=== PATIENT | female | born 1975 | race Caucasian/White ===

== ENCOUNTER → 2016-03-04 | Outpatient (CLI) | payer BC ==
[2016-03-04 16:13] LABS: Basophils % (A) 0 %; CH 30.9; CHCM 32.9; Eosinophils # (A) 0.1 k/uL (0-0.7); Eosinophils % (A) 2 %; HCT 45.2 % (34.0-46.0); HDW 2.23; HGB 14.7 gm/dL (11.4-16.0); Luc # (Auto) 0.09; Luc % (Auto) 1; Lymphocytes # (A) 1.7 k/uL (1.0-4.8); Lymphocytes % (A) 22 %; MCH 30.7 pg (25.0-35.0); MCHC 32.5 g/dL (31.0-37.0); MCV 94.3 fL (80.0-100.0); Mean Platelet Volume 6.6; Monocytes # (A) 0.3 k/uL (0-1.0); Monocytes % (A) 3 %; Neutrophils # (A) 5.6 k/uL (1.3-7.7); Neutrophils % (A) 72 %; RDW 11.9 % (11.5-15.5); WBC 7.8 k/uL (3.8-10.6); WBC (Perox) 8.31
[2016-03-04 16:27] LABS: ALT 31 U/L (9-52); AST 32 U/L (14-36); Alkaline Phosphatase 60 U/L (38-126); Anion Gap 13 mmol/L; Blood Urea Nitrogen 8 mg/dL (7-17); Calcium 9.6 mg/dL (8.4-10.2); Carbon Dioxide 26 mmol/L (22-30); Chloride 101 mmol/L (98-107); Glucose 111 mg/dL (74-99); Non-African American GFR(MDRD) >60 (>60 ml/min/1.73 sqM); Potassium 4.3 mmol/L (3.5-5.1); Sodium 140 mmol/L (137-145); Total Bilirubin 0.9 mg/dL (0.2-1.3); Total Protein 7.9 g/dL (6.3-8.2)
[2016-03-04 16:47] LABS: Creatine Kinase MB 0.3 ng/mL (0.0-2.4); Troponin I <0.012 ng/mL (0.000-0.034)
== END | disposition home or self-care (01) ==
LOC: LABWHC1 15:57
PROVIDERS: ATTEND Nurse Practitioner Adult Health
DX: R07.9 Chest pain, unspecified (principal)
CPT/HCPCS: 36415; 80053; 82553; 84484; 85025; 85379

== ENCOUNTER → 2016-04-22 | Outpatient (CLI) | payer BC ==
--- NOTE | 2016-04-22 16:43 | CT ---
EXAMINATION TYPE: CT brain wo con DATE OF EXAM: 04/22/2016 4:33 PM COMPARISON: NONE INDICATION: 06/03/2013 DLP: 1189 mGycm, Automated exposure control for dose reduction was used. CONTRAST: None CT of the brain is performed utilizing 3 mm thick sections through the posterior fossa and 3 mm thick sections through the remaining calvarium. Study is performed within 24 hours of arrival to the hosp [facility]. No abnormal hyperdensity is present to suggest an acute intracranial hemorrhage. No mass lesion is evident. No acute infarcts are evident. Ventricles and sulci are appropriate for the patient age. Paranasal sinuses and mastoid air cells within the [id number] are clear. IMPRESSIONS: 1. No acute intracranial process.
== END | disposition home or self-care (01) ==
LOC: RADCTMAIN 16:09
PROVIDERS: ATTEND Family Medicine
DX: S09.90XA Unspecified injury of head, initial encounter (principal)
CPT/HCPCS: 70450

== ENCOUNTER 2016-06-19 09:46 | Day surgery (SDC) | payer BC ==
[2016-06-17 14:33] VITALS: BMI 30.4
[~2016-06-19 09:46] MED LIST: LACTATED RINGERS 1,000 ML IV SCH
[2016-06-19 10:45] VITALS: TEMP 98.1
[2016-06-19] MEDS ORDERED: LIDOCAINE 1% 20 ML VIAL (10MG/ML) FOR IV START INTRADERMA ONE (10:48)
[2016-06-19] MEDS ORDERED: fentaNYL (PF) 50 MCG/ML 2 ML AMP ONE (11:19)
[2016-06-19] MEDS ORDERED: PROPOFOL 10 MG/ML 20 ML VIAL IV ONE (11:19)
[2016-06-19] MEDS ORDERED: MIDAZOLAM 2 MG/2 ML VIAL ONE (11:19)
[2016-06-19] MEDS ORDERED: LIDOCAINE 1% INJ 10MG/ML (20 ML MDV) ONE (11:19)
--- NOTE | 2016-06-19 11:50 | P.PCN ---
Date of Procedure: 06/19/16 Procedure(s) Performed: Procedure: Colonoscopy and biopsy. Preoperative diagnosis: Diarrhea and hematochezia. Postoperative diagnosis: Exam of the colon and terminal ileum within normal limits. Preparation: HalfLytely prep. Sedation: Was provided by anesthesia. Brief clinical history: The patient is a 40-year-old female who was previously evaluated in our office in March 2016 for left upper quadrant abdominal pains of 2-year duration, as well as epigastric pain and heartburn. The patient underwent upper endoscopy around 2 years ago. The patient is referred for this evaluation at this time because of diarrhea and hematochezia. Procedure: With the patient on her left lateral decubitus position and after informed consent and adequate sedation, the perianal area was inspected and it did not show any fissures or fistulas. There were no masses felt on digital rectal examination. The Olympus CFQ 160L video colonoscope was then inserted in the rectum in the usual fashion and advanced to the cecum. I intubated the ileocecal valve and examined the terminal ileum. Terminal ileum and colon appeared healthy with no edema, erythema, friability, ulceration, exudation or spontaneous bleeding. No polyps or tumors were seen. I obtained biopsies from the terminal ileum and randomly from the colon then I retroflexed the endoscope in the rectum before the endoscope was withdrawn. Low-grade internal hemorrhoids were noted but there was no evidence of bleeding. The patient tolerated the procedure well. Plan: The patient was reassured. Will await biopsy results. Discussed dietary measures. Further plans will be made based on her course and biopsy results. She will follow-up with you as planned.
[2016-06-19 12:06] VITALS: PULSE 69; RESP 18
[2016-06-19 12:18] VITALS: BP 110/75
== END 2016-06-19 12:44 | disposition home or self-care (01) ==
LOC: ORWHC2ENDO 09:46
DX: R19.7 Diarrhea, unspecified (principal); K92.1 Melena; K64.8 Other hemorrhoids; K21.9 Gastro-esophageal reflux disease without esophagitis; Z79.899 Other long term (current) drug therapy
CPT/HCPCS: 88305; 45380; J2250; J2001; J3010; J2704

== ENCOUNTER → 2016-07-10 | Outpatient (CLI) | payer BC ==
--- NOTE | 2016-07-10 13:49 | MM ---
Reason for exam: screening (asymptomatic). Last mammogram was performed 1 year and 1 month ago. History: Patient is postmenopausal. Family history of breast cancer in maternal grandmother at age 60. Took hormonal contraceptives for 4 years beginning at age 15. Physical Findings: A clinical breast exam by your physician is recommended on an annual basis and results should be correlated with mammographic findings. MG Screening Mammo w CAD Bilateral CC and MLO view(s) were taken. Prior study comparison: June 07, 2015, bilateral MG 3d screening mammo w/cad. October 24, 2013, bilateral MG diagnostic mammo w CAD [facility]. The breast tissue is heterogeneously dense. This may lower the sensitivity of mammography. No significant changes when compared with prior studies. ASSESSMENT: Benign, BI-RAD 2 RECOMMENDATION: Routine screening mammogram of both breasts in 1 year.
== END | disposition home or self-care (01) ==
LOC: RADMAMWWP 07:50
PROVIDERS: ATTEND Family Medicine
DX: Z12.31 Encounter for screening mammogram for malignant neoplasm of breast (principal)

== ENCOUNTER 2016-11-07 14:41 | Emergency (ER) | payer BC ==
[2016-11-07] MEDS ORDERED: hydrOXYzine HCL 25 MG TAB PO STA (15:36)
[2016-11-07 16:13] LABS: Basophils % (A) 1 %; CH 32.1; CHCM 33.8; Eosinophils # (A) 0.1 k/uL (0-0.7); Eosinophils % (A) 2 %; HCT 43.3 % (34.0-46.0); HDW 2.15; HGB 14.1 gm/dL (11.4-16.0); Luc # (Auto) 0.11; Luc % (Auto) 1; Lymphocytes # (A) 2.2 k/uL (1.0-4.8); Lymphocytes % (A) 25 %; MCHC 32.6 g/dL (31.0-37.0); MCV 95.3 fL (80.0-100.0); Mean Platelet Volume 7.5; Monocytes # (A) 0.4 k/uL (0-1.0); Monocytes % (A) 4 %; Neutrophils # (A) 5.9 k/uL (1.3-7.7); Neutrophils % (A) 68 %; RBC 4.54 m/uL (3.80-5.40); RDW 13.3 % (11.5-15.5); WBC 8.7 k/uL (3.8-10.6); WBC (Perox) 9.08
--- NOTE | 2016-11-07 16:16 | ED ---
Skin/Abscess/FB HPI - General Chief complaint: Skin/Abscess/Foreign Body Stated complaint: Itching all over Time Seen by Provider: 11/07/16 15:17 Source: patient, RN notes reviewed, old records reviewed Mode of arrival: ambulatory Limitations: no limitations - History of Present Illness Initial comments: This is a 41-year-old male presents emergency department with 2-3 weeks of severe pruritus. Patient reports that it's in her hands and feet mainly. She states that prior to the starting she recently completed an antibiotic for a left lower leg cellulitis infection. She reports that that seemed to heal well. Patient reports she went to an urgent care 1 week ago and was told she has psoriasis. Patient reports that she does have some severe itching. She reports it does not get any better with Benadryl, were and histamine spray. She was prescribed steroids and hydrocortisone cream by the urgent care physician week ago. She reports that has not helped. Patient states that she also has noticed a rash over her that is also very itchy. She states is red and in spotted patches. - Related Data Home Medications Medication Instructions Recorded Confirmed Omeprazole [PriLOSEC] 20 mg PO AC-BID 06/17/16 06/19/16 Previous Rx's Medication Instructions Recorded hydrOXYzine HCL [Atarax] 25 mg PO QID PRN #20 tab 11/07/16 predniSONE 50 mg PO DAILY #7 tablet 11/07/16 Allergies Allergy/AdvReac Type Severity Reaction Status Date / Time No Known Allergies Allergy Verified 11/07/16 14:53 Review of Systems ROS Statement: Those systems with pertinent positive or pertinent negative responses have been documented in the HPI. ROS Other: All systems not noted in ROS Statement are negative. Past Medical History Past Medical History: Fibromyalgia, GERD/Reflux Additional Past Medical History / Comment(s): HX OF POLYPS, BLOOD IN STOOL, ABD PAIN History of Any Multi-Drug Resistant Organisms: None Reported Past Surgical History: Section, Cholecystectomy, Hysterectomy Additional Past Surgical History / Comment(s): WISDOM TEETH, LEEP, PLANTAR FASCIAITIS LEFT FOOT Additional Past Anesthesia/Blood Transfusion Reaction / Comment(s): STATES COMES OUT OF ANESTHESIA IN "A PANIC ATTACK" Past Psychological History: No Psychological Hx Reported Smoking Status: Never smoker Past Alcohol Use History: None Reported Past Drug Use History: None Reported - Past Family History Mother Family Medical History: No Reported History General Exam - General Exam Comments Initial Comments: This is a 41-year-old female. Acute distress. Limitations: no limitations General appearance: alert, in no apparent distress Head exam: Present: atraumatic, normocephalic, normal inspection Eye exam: Present: normal appearance, PERRL, EOMI. Absent: scleral icterus, conjunctival injection, periorbital swelling ENT exam: Present: normal exam, mucous membranes moist Neck exam: Present: normal inspection. Absent: tenderness, meningismus, lymphadenopathy Respiratory exam: Present: normal lung sounds bilaterally. Absent: respiratory distress, wheezes, rales, rhonchi, stridor Cardiovascular Exam: Present: regular rate, normal rhythm, normal heart sounds. Absent: systolic murmur, diastolic murmur, rubs, gallop, clicks GI/Abdominal exam: Present: soft, normal bowel sounds. Absent: distended, tenderness, guarding, rebound, rigid Extremities exam: Present: normal inspection, full ROM, normal capillary refill. Absent: tenderness, pedal edema, joint swelling, calf tenderness Back exam: Present: normal inspection Neurological exam: Present: alert, oriented X3, CN II-XII intact Skin exam: Present: warm, dry, intact, normal color, rash ( has a lacelike mottled rash over her right breast, abdomen and back.) Course Vital Signs 11/07/16 11/07/16 14:50 16:51 Temperature 98.1 F 98.0 F Pulse Rate 70 73 Respiratory 18 16 Rate Blood Pressure 114/61 116/78 O2 Sat by Pulse 97 98 Oximetry Medical Decision Making - Medical Decision Making This is a 41-year-old male presents emergency department with 2-3 weeks of severe pruritus. Patient reports that it's in her hands and feet mainly. Patient reports she went to an urgent care 1 week ago and was told she has psoriasis. Patient reports that she does have some severe itching. Patient does not have a rash over her hands. There is evidence of a lacy-like rash peeling over the back, and right breast. A did do blood work on the patient, CBC and CMP are within normal limits. Discussed that this rash could be from multiple etiologies including autoimmune diseases such as lupus. Patient was informed of this. Patient warts that she does have a history of an elevated and in a few years ago. I did discuss this with Dr. Berkowitz. He also examined the patient. At this time elected to the patient for the pruritus, and place the patient on steroids, and Atarax for the itching. Discussion is follow-up with a clinical haematologist and senior ios software engineer. Patient agrees to treatment plan will comply. Return parameters were discussed. - Lab Data Result diagrams: 11/07/16 15:54 11/07/16 15:54 Lab Results 11/07/16 11/07/16 Range/Units 15:54 15:54 WBC 8.7 (3.8-10.6) k/uL RBC 4.54 (3.80-5.40) m/uL Hgb 14.1 (11.4-16.0) gm/dL Hct 43.3 (34.0-46.0) % MCV 95.3 (80.0-100.0) fL MCH 31.0 (25.0-35.0) pg MCHC 32.6 (31.0-37.0) g/dL RDW 13.3 (11.5-15.5) % Plt Count 409 (150-450) k/uL Neutrophils % 68 % Lymphocytes % 25 % Monocytes % 4 % Eosinophils % 2 % Basophils % 1 % Neutrophils # 5.9 (1.3-7.7) k/uL Lymphocytes # 2.2 (1.0-4.8) k/uL Monocytes # 0.4 (0-1.0) k/uL Eosinophils # 0.1 (0-0.7) k/uL Basophils # 0.0 (0-0.2) k/uL ESR Cancelled Sodium 138 (137-145) mmol/L Potassium 3.9 (3.5-5.1) mmol/L Chloride 105 (98-107) mmol/L Carbon Dioxide 21 L (22-30) mmol/L Anion Gap 12 mmol/L BUN 12 (7-17) mg/dL Creatinine 0.71 (0.52-1.04) mg/dL Est GFR (MDRD) Af Amer >60 (>60 ml/min/1.73 sqM) Est GFR (MDRD) Non-Af >60 (>60 ml/min/1.73 sqM) Glucose 88 (74-99) mg/dL Calcium 9.6 (8.4-10.2) mg/dL Total Bilirubin 0.6 (0.2-1.3) mg/dL AST 22 (14-36) U/L ALT 28 (9-52) U/L Alkaline Phosphatase 64 (38-126) U/L Total Protein 7.4 (6.3-8.2) g/dL Albumin 4.4 (3.5-5.0) g/dL Disposition Clinical Impression: Pruritic rash Disposition: HOME SELF-CARE Condition: Good Instructions: Acute Rash (ED) Additional Instructions: Patient has follow-up with clinical haematologist and PCP. Take the steroids and Atarax as prescribed. Continue use the hydrocortisone cream. Return to emergency department if any alarming signs or symptoms occur. Prescriptions: hydrOXYzine HCL [Atarax] 25 mg PO QID PRN #20 tab PRN Reason: Itching predniSONE 50 mg PO DAILY #7 tablet Referrals: Larisa Suggs DO [Primary Care Provider] - 1-2 days Boom Wilburn MD [STAFF PHYSICIAN] - 1-2 days Time of Disposition: 16:44
[2016-11-07 16:18] LABS: ALT 28 U/L (9-52); AST 22 U/L (14-36); Alkaline Phosphatase 64 U/L (38-126); Anion Gap 12 mmol/L; Blood Urea Nitrogen 12 mg/dL (7-17); Calcium 9.6 mg/dL (8.4-10.2); Carbon Dioxide 21 mmol/L (22-30); Chloride 105 mmol/L (98-107); Glucose 88 mg/dL (74-99); Non-African American GFR(MDRD) >60 (>60 ml/min/1.73 sqM); Potassium 3.9 mmol/L (3.5-5.1); Sodium 138 mmol/L (137-145); Total Bilirubin 0.6 mg/dL (0.2-1.3); Total Protein 7.4 g/dL (6.3-8.2)
[2016-11-07 16:53] VITALS: BP 116/78; PULSE 73; RESP 16; TEMP 98
== END 2016-11-07 16:51 | disposition home or self-care (01) ==
LOC: EC 14:41
DX: R21 Rash and other nonspecific skin eruption (principal); K21.9 Gastro-esophageal reflux disease without esophagitis; Z79.899 Other long term (current) drug therapy
CPT/HCPCS: 36415; 80053; 85025; 99283

== ENCOUNTER → 2016-11-10 | Outpatient (CLI) | payer BC | END | disposition home or self-care (01) | LOC: LABWHC1 17:11 | PROVIDERS: ATTEND Dermatology Procedural Dermatology | DX: D89.1 Cryoglobulinemia (principal) | CPT/HCPCS: 36415; 82595; 86038; 86431 ==

== ENCOUNTER → 2017-01-06 | Outpatient (CLI) | payer BC | END | disposition home or self-care (01) | LOC: LABWHC1 10:11 | PROVIDERS: ATTEND Dermatology Procedural Dermatology | DX: L30.9 Dermatitis, unspecified (principal); M32.9 Systemic lupus erythematosus, unspecified | CPT/HCPCS: 36415; 86147 ==

== ENCOUNTER → 2017-06-11 | Outpatient (CLI) | payer BC ==
--- NOTE | 2017-06-11 15:28 | FL ---
EXAMINATION TYPE: FL UGI air w small bowel DATE OF EXAM: 06/11/2017 COMPARISON: NONE HISTORY: Abdominal pain TECHNIQUE: A double contrast UGI study is performed with small bowel follow through. FINDINGS: Wastewater Supervisor image of the abdomen shows no gross abnormality. Surgical clips in the gallbladder f shae. Esophageal peristalsis and motility was normal. There is no evidence of hiatal hernia. Stomach was no rmal in size shape and position without evidence of ulcer crater or filling defect. There was evidenc e of moderate gastroesophageal reflux. Duodenal bulb and sweep are unremarkable. There is marked delay in transit time through the small bowel. Passage into the colon required 4 hour s and 5 minutes. The bowel is trace mild dilation dilated although there is some dilation. No definit e filling defects. IMPRESSION: 1. Marked delay in transit time through the small bowel requiring 4 hours and 5 minutes. No definite transition. Obstructive pattern or ileus in the differential diagnosis.
== END | disposition home or self-care (01) ==
LOC: RADFLMAIN 08:00
PROVIDERS: ATTEND Family Medicine
DX: K56.609 Unspecified intestinal obstruction, unspecified as to partial versus complete obstruction (principal)
CPT/HCPCS: 74249

== ENCOUNTER 2018-04-27 22:11 | Emergency (ER) | payer BC ==
[2018-04-27 22:24] VITALS: RESP 18
[2018-04-27] MEDS ORDERED: SODIUM CHLORIDE 0.9% 1,000 ML IV STA (22:32)
[2018-04-27] MEDS ORDERED: KETOROLAC 30 MG/ML 1 ML VIAL IVP STA (23:13)
--- NOTE | 2018-04-27 23:13 | ED ---
General Adult HPI - General Chief complaint: Chest Pain Stated complaint: Chest and lower back pain, cough, poss pneumonia Time Seen by Provider: 04/27/18 22:31 Source: patient Mode of arrival: ambulatory Limitations: no limitations - History of Present Illness Initial comments: Allison is a previously healthy, non-smoker who presents to the ED today for evaluation of progressively worsening cough, fatigue and body aches. Patient states that she began having minimally productive cough on , she tried to tough it out over the weekend. She states that she felt fatigued and became short of breath with minimal exertion all weekend. Today she returned to work and had a CPR class in which she became very tired doing chest compressions. Patient became concerned she may be developing pneumonia so she came to the ER for evaluation. She describes sharp pain in her bilateral chest throughout all lung salazar with deep inspiration , she denies exertional chest pain. She has no cardiac history, no history of DVT/PE - Related Data Home Medications Medication Instructions Recorded Confirmed DULoxetine HCL [Cymbalta] 20 mg PO DAILY 04/27/18 04/27/18 DULoxetine HCL [Cymbalta] 30 mg PO BID@0700,2000 04/27/18 04/27/18 Ergocalciferol (Vitamin D2) 50,000 unit PO MOFR 04/27/18 04/27/18 [Vitamin D2] Omeprazole 20 mg PO DAILY@1400 04/27/18 04/27/18 Previous Rx's Medication Instructions Recorded predniSONE [Deltasone] 40 mg PO DAILY 5 Days #10 tablet 04/28/18 Allergies Allergy/AdvReac Type Severity Reaction Status Date / Time No Known Allergies Allergy Verified 04/27/18 22:42 Review of Systems ROS Statement: Those systems with pertinent positive or pertinent negative responses have been documented in the HPI. ROS Other: All systems not noted in ROS Statement are negative. Past Medical History Past Medical History: Fibromyalgia, GERD/Reflux Additional Past Medical History / Comment(s): HX OF POLYPS, BLOOD IN STOOL, ABD PAIN History of Any Multi-Drug Resistant Organisms: None Reported Past Surgical History: Section, Cholecystectomy, Hysterectomy Additional Past Surgical History / Comment(s): WISDOM TEETH, LEEP, PLANTAR FASCIAITIS LEFT FOOT Additional Past Anesthesia/Blood Transfusion Reaction / Comment(s): STATES COMES OUT OF ANESTHESIA IN "A PANIC ATTACK" Past Psychological History: No Psychological Hx Reported Smoking Status: Never smoker Past Alcohol Use History: None Reported Past Drug Use History: None Reported - Past Family History Mother Family Medical History: No Reported History General Exam - General Exam Comments Initial Comments: Physical Exam GENERAL: Patient is well-developed and well-nourished. Patient is nontoxic and well-hydrated and is in no distress. HENT: Normocephalic, Atraumatic. EYES: PERRL, EOMI PULMONARY: Unlabored respirations. No audible rales rhonchi or wheezing was noted. CARDIOVASCULAR: There is a regular rate and rhythm without any murmurs gallops or rubs. ABDOMEN: Soft and nontender with normal bowel sounds. SKIN: Skin is clear with no lesions or rashes and otherwise unremarkable. : Deferred NEUROLOGIC: Patient is alert and oriented x3. Moving all extremities spontaneously MUSCULOSKELETAL: Normal extremities with adequate strength and full range of motion. No lower extremity swelling or edema. No calf tenderness. PSYCHIATRIC: Normal psychiatric evaluation. Limitations: no limitations Limitations: no limitations Course Vital Signs 04/27/18 04/28/18 22:21 01:08 Temperature 98.2 F 98.1 F Pulse Rate 73 89 Respiratory 18 18 Rate Blood Pressure 123/86 116/71 O2 Sat by Pulse 98 98 Oximetry EKG Findings - EKG Comments: EKG Findings:: EKG was obtained at 2237. EKG with a rate of 71, there is a P- wave before each QRS, rhythm is sinus, there is a normal axis, there are normal intervals, TN 152, QRS 72, QTc 432. There is no acute ST elevations or depressions or evidence of acute ischemia or infarction Medical Decision Making - Medical Decision Making The patient was seen and evaluated history is obtained from patient and review of medical records Patient with viral-like syndrome which has persisted for 5 days there is concern for possible pneumonia, in addition patient seems to be having pleuritic like chest pain EKG was ordered due to the chest pain Heart score is 0 PERC and Wells are negative Labs revealed no significant abnormalities, d-dimer not elevated At this time I do feel the patient is suffering from pleurisy likely related to recent upper respiratory infection. I discussed with the patient the need for supportive care. I will prescribe the patient is short course of oral steroids. All questions pertaining care were answered return parameters were discussed and offered the patient a work note however she stated that she has the next 2 days off work and doesn't need a work note at this time. - Lab Data Result diagrams: 04/27/18 23:02 04/27/18 23:02 Lab Results 04/27/18 04/27/18 04/27/18 Range/Units 23:02 23:02 23:02 WBC 6.2 (3.8-10.6) k/uL RBC 4.67 (3.80-5.40) m/uL Hgb 14.3 (11.4-16.0) gm/dL Hct 43.8 (34.0-46.0) % MCV 93.7 (80.0-100.0) fL MCH 30.7 (25.0-35.0) pg MCHC 32.8 (31.0-37.0) g/dL RDW 12.4 (11.5-15.5) % Plt Count 379 (150-450) k/uL Neutrophils % 55 % Lymphocytes % 36 % Monocytes % 5 % Eosinophils % 2 % Basophils % 1 % Neutrophils # 3.4 (1.3-7.7) k/uL Lymphocytes # 2.2 (1.0-4.8) k/uL Monocytes # 0.3 (0-1.0) k/uL Eosinophils # 0.1 (0-0.7) k/uL Basophils # 0.0 (0-0.2) k/uL PT 10.3 (9.0-12.0) sec INR 1.0 (<1.2) APTT 26.5 (22.0-30.0) sec D-Dimer 0.33 (<0.60) mg/L FEU Sodium 139 (137-145) mmol/L Potassium 4.2 (3.5-5.1) mmol/L Chloride 103 (98-107) mmol/L Carbon Dioxide 26 (22-30) mmol/L Anion Gap 10 mmol/L BUN 9 (7-17) mg/dL Creatinine 0.76 (0.52-1.04) mg/dL Est GFR (CKD-EPI)AfAm >90 (>60 ml/min/1.73 sqM) Est GFR (CKD-EPI)NonAf >90 (>60 ml/min/1.73 sqM) Glucose 83 (74-99) mg/dL Calcium 10.0 (8.4-10.2) mg/dL Magnesium 2.0 (1.6-2.3) mg/dL Total Bilirubin 0.7 (0.2-1.3) mg/dL AST 28 (14-36) U/L ALT 28 (9-52) U/L Alkaline Phosphatase 72 (38-126) U/L Troponin I (0.000-0.034) ng/mL Total Protein 7.5 (6.3-8.2) g/dL Albumin 4.5 (3.5-5.0) g/dL 04/27/18 Range/Units 23:02 WBC (3.8-10.6) k/uL RBC (3.80-5.40) m/uL Hgb (11.4-16.0) gm/dL Hct (34.0-46.0) % MCV (80.0-100.0) fL MCH (25.0-35.0) pg MCHC (31.0-37.0) g/dL RDW (11.5-15.5) % Plt Count (150-450) k/uL Neutrophils % % Lymphocytes % % Monocytes % % Eosinophils % % Basophils % % Neutrophils # (1.3-7.7) k/uL Lymphocytes # (1.0-4.8) k/uL Monocytes # (0-1.0) k/uL Eosinophils # (0-0.7) k/uL Basophils # (0-0.2) k/uL PT (9.0-12.0) sec INR (<1.2) APTT (22.0-30.0) sec D-Dimer (<0.60) mg/L FEU Sodium (137-145) mmol/L Potassium (3.5-5.1) mmol/L Chloride (98-107) mmol/L Carbon Dioxide (22-30) mmol/L Anion Gap mmol/L BUN (7-17) mg/dL Creatinine (0.52-1.04) mg/dL Est GFR (CKD-EPI)AfAm (>60 ml/min/1.73 sqM) Est GFR (CKD-EPI)NonAf (>60 ml/min/1.73 sqM) Glucose (74-99) mg/dL Calcium (8.4-10.2) mg/dL Magnesium (1.6-2.3) mg/dL Total Bilirubin (0.2-1.3) mg/dL AST (14-36) U/L ALT (9-52) U/L Alkaline Phosphatase (38-126) U/L Troponin I <0.012 (0.000-0.034) ng/mL Total Protein (6.3-8.2) g/dL Albumin (3.5-5.0) g/dL Disposition Clinical Impression: Viral syndrome, Bronchitis Disposition: HOME SELF-CARE Condition: Stable Instructions (If sedation given, give patient instructions): Viral Syndrome (ED) Prescriptions: predniSONE [Deltasone] 40 mg PO DAILY 5 Days #10 tablet Is patient prescribed a controlled substance at d/c from ED?: No Referrals: Larisa Suggs DO [Primary Care Provider] - 1-2 days
[2018-04-27 23:17] LABS: Basophils % (A) 1 %; Eosinophils # (A) 0.1 k/uL (0-0.7); Eosinophils % (A) 2 %; HCT 43.8 % (34.0-46.0); HGB 14.3 gm/dL (11.4-16.0); Lymphocytes # (A) 2.2 k/uL (1.0-4.8); Lymphocytes % (A) 36 %; MCH 30.7 pg (25.0-35.0); MCHC 32.8 g/dL (31.0-37.0); MCV 93.7 fL (80.0-100.0); Mean Platelet Volume 6.4; Monocytes # (A) 0.3 k/uL (0-1.0); Monocytes % (A) 5 %; Neutrophils # (A) 3.4 k/uL (1.3-7.7); Neutrophils % (A) 55 %; Platelet Count 379 k/uL (150-450); RBC 4.67 m/uL (3.80-5.40); RDW 12.4 % (11.5-15.5); WBC 6.2 k/uL (3.8-10.6)
[2018-04-27 23:30] LABS: D-Dimer 0.33 mg/L FEU (<0.60); Partial Thromboplastin Time 26.5 sec (22.0-30.0); Prothrombin Time 10.3 sec (9.0-12.0)
[2018-04-27 23:35] LABS: ALT 28 U/L (9-52); AST 28 U/L (14-36); Albumin 4.5 g/dL (3.5-5.0); Alkaline Phosphatase 72 U/L (38-126); Anion Gap 10 mmol/L; Blood Urea Nitrogen 9 mg/dL (7-17); Carbon Dioxide 26 mmol/L (22-30); Chloride 103 mmol/L (98-107); Glucose 83 mg/dL (74-99); Potassium 4.2 mmol/L (3.5-5.1); Sodium 139 mmol/L (137-145); Total Bilirubin 0.7 mg/dL (0.2-1.3); Total Protein 7.5 g/dL (6.3-8.2)
[2018-04-28 01:09] VITALS: BP 116/71; PULSE 89; TEMP 98.1
--- NOTE | 2018-04-28 06:59 | XR ---
EXAMINATION TYPE: XR chest 2V DATE OF EXAM: 04/28/2018 COMPARISON: 05/26/2013 HISTORY: Chest pain TECHNIQUE: Frontal and lateral views of the chest are obtained. FINDINGS: There is no focal air space opacity. No evidence for pneumothorax. No pleural effusion. The cardiac silhouette size is within normal limits. The osseous structures are grossly intact. IMPRESSION: 1. No acute cardiopulmonary process. Preliminary report is provided by stat rad
== END 2018-04-28 01:10 | disposition home or self-care (01) ==
LOC: EC 22:11
DX: J40 Bronchitis, not specified as acute or chronic (principal); B34.9 Viral infection, unspecified; M79.7 Fibromyalgia; K21.9 Gastro-esophageal reflux disease without esophagitis; Z79.899 Other long term (current) drug therapy
CPT/HCPCS: 36415; 93005; 85379; 80053; 83735; 84484; 85025; 85610; 85730; 71046; 99285; 96374; 96361; J1885

== ENCOUNTER → 2018-12-17 | Outpatient (CLI) | payer BC ==
[2018-12-17 17:44] LABS: INR 0.9 (<1.2); Prothrombin Time 10.2 sec (9.0-12.0)
[2018-12-17 23:24] LABS: C Reactive Protein, High Sens 9.98 mg/L (0.000-3.000); Calcium 9.3 mg/dL (8.7-10.3); Magnesium 1.9 mg/dL (1.5-2.4)
[2018-12-17 23:33] LABS: Luteinizing Hormone 7.6 mIU/mL
[2018-12-18 01:08] LABS: Hepatitis A Antibody IgM Non-Reactive (Non-Reactive); Hepatitis B Core IgM Non-Reactive (Non-Reactive); Hepatitis B Surface Antigen Non-Reactive (Non-Reactive); Hepatitis C IgG Antibody Non-Reactive (Non-Reactive)
[2018-12-18 01:50] LABS: Cyclic Citrull Pep IgG Unit <0.5 U/mL; Cyclic Citrullinated Pep IgG NEGATIVE (NEGATIVE)
== END | disposition home or self-care (01) ==
LOC: LABWHC1 16:34
PROVIDERS: ATTEND Family Medicine
DX: M79.18 Myalgia, other site (principal); R04.0 Epistaxis
CPT/HCPCS: 36415; 80074; 82310; 83002; 83735; 83970; 85610; 86141; 86200

== ENCOUNTER → 2019-02-04 | Outpatient (CLI) | payer BC ==
--- NOTE | 2019-02-04 12:20 | MR ---
EXAMINATION TYPE: MR liver wo/w con DATE OF EXAM: 02/04/2019 COMPARISON: CT abdomen and pelvis August 11, [address] April 06, 2014 HISTORY: Liver lesion, abnormal CT. CONTRAST: Standard multiplanar, multisequence MRI departmental protocol utilizing 10 mL intravenous Gadavist ga dolinium contrast. FINDINGS: Liver/gallbladder: Liver remains normal in size. No significant signal dropout to suggest diffuse fat ty infiltration. Gallbladder noted surgically absent. In the inferior right hepatic lobe there is a 9 to 10 mm round lesion of T1 hypointensity and T2 hyperintensity axial image 23 series 501 along with slightly larger 1.9 cm lesion posterior and inferior to this posterior segment right hepatic lobe im age 20. Findings correlate with CT from 2018 and 2014. Dynamic postcontrast images show peripheral no dular enhancement with progressive centripetal filling of the larger lesion and smaller lesion consis tent with small benign appearing hemangiomas. Gallbladder surgically absent. No intrahepatic or extra hepatic ductal dilatation is seen. There is third additional 5 mm lesion more superior coronal image 33 on axial image 28 posterior right hepatic lobe that shows progressive enhancement consistent with additional hemangioma. Other: Lung bases are grossly clear. The spleen and both adrenal glands are normal in size. Pancreas is within normal limits. There is no concerning renal mass or hydronephrosis seen bilaterally. No ashwini picious small or large bowel dilatation. No abdominal ascites or abdominal adenopathy. Osseous struct ures are intact. IMPRESSION: There are 3 liver lesions consistent with benign hemangiomas up to 1.9 cm in size on MRI as detailed above.
== END | disposition home or self-care (01) ==
LOC: RADMRIMAIN 11:23
PROVIDERS: ATTEND Family Medicine
DX: K76.9 Liver disease, unspecified (principal); M62.81 Muscle weakness (generalized)
CPT/HCPCS: 74183; A9585

== ENCOUNTER 2019-02-08 08:06 | Emergency (ER) | payer BC ==
[2019-02-08 08:12] VITALS: RESP 18
[2019-02-08] MEDS ORDERED: SODIUM CHLORIDE 0.9% 500 ML 500 ML IV ONE (08:21)
[2019-02-08] MEDS ORDERED: ONDANSETRON 4 MG/2 ML VIAL IVP STA (08:22)
[2019-02-08] MEDS ORDERED: MECLIZINE 25 MG TAB PO STA (08:22)
--- NOTE | 2019-02-08 08:40 | ED ---
General Adult HPI - General Chief complaint: Headache Stated complaint: Headache Time Seen by Provider: 02/08/19 08:10 Source: patient, RN notes reviewed, old records reviewed Mode of arrival: ambulatory Limitations: no limitations - History of Present Illness Initial comments: This is a 43-year-old female presents emergency Department complaining that last night around midnight she felt like the room was spinning after that she developed a mild headache. Patient states she came nauseated and vomited times one. Patient states the dizziness continues now. Patient states she started having some tingling in the left side of her body. No loss of sensation. Patient states she cut always feel everything and she can always move her extremities normally. Patient denies any facial droop or visual disturbances. Patient denies any slurred speech. Patient denies any recent fever chills per patient denies any neck pain. Patient states she normally does not have headaches and she has never had dizziness like this. Patient states she went to work but the dizziness and headache continues or she came to the emergency department. - Related Data Home Medications Medication Instructions Recorded Confirmed Omeprazole 20 mg PO DAILY 04/27/18 08/11/18 Albuterol Nebulized [Ventolin 2.5 mg INHALATION Q6H PRN 08/11/18 08/11/18 Nebulized] Montelukast Sodium [Singulair] 10 mg PO DAILY 08/11/18 08/11/18 Previous Rx's Medication Instructions Recorded Meclizine [Antivert] 25 mg PO TID #20 tab 02/08/19 Allergies Allergy/AdvReac Type Severity Reaction Status Date / Time sulfamethoxazole Allergy Rash/Hives Verified 02/08/19 08:12 [From Bactrim] trimethoprim [From Bactrim] Allergy Rash/Hives Verified 02/08/19 08:12 Review of Systems ROS Statement: Those systems with pertinent positive or pertinent negative responses have been documented in the HPI. ROS Other: All systems not noted in ROS Statement are negative. Past Medical History Past Medical History: Asthma, Fibromyalgia, GERD/Reflux Additional Past Medical History / Comment(s): HX OF POLYPS, bowel obstruction History of Any Multi-Drug Resistant Organisms: None Reported Past Surgical History: Section, Cholecystectomy, Hysterectomy Additional Past Surgical History / Comment(s): WISDOM TEETH, LEEP, PLANTAR FASCIAITIS LEFT FOOT Additional Past Anesthesia/Blood Transfusion Reaction / Comment(s): STATES COMES OUT OF ANESTHESIA IN "A PANIC ATTACK" Past Psychological History: Panic Disorder Smoking Status: Never smoker Past Alcohol Use History: None Reported Past Drug Use History: None Reported - Past Family History Mother Family Medical History: No Reported History General Exam - General Exam Comments Initial Comments: GENERAL: Patient is well-developed and well-nourished. Patient is nontoxic and well- hydrated and is in mild distress. ENT: Neck is soft and supple. No significant lymphadenopathy is noted. Oropharynx is clear. Moist mucous membranes. Neck has full range of motion without eliciting any pain. EYES: The sclera were anicteric and conjunctiva were pink and moist. Extraocular movements were intact and pupils were equal round and reactive to light. Eyelids were unremarkable. PULMONARY: Unlabored respirations. Good breath sounds bilaterally. No audible rales rh onchi or wheezing was noted. CARDIOVASCULAR: There is a regular rate and rhythm without any murmurs gallops or rubs. ABDOMEN: Soft and nontender with normal bowel sounds. SKIN: Skin is clear with no lesions or rashes and otherwise unremarkable. NEUROLOGIC: Patient is alert and oriented x3. Cranial nerves II through XII are grossly intact. Motor and sensory are also intact. Normal speech, volume and content. Symmetrical smile. Finger to nose cerebellar testing is normal. MUSCULOSKELETAL: Normal extremities with adequate strength and full range of motion. No lower extremity swelling or edema. No calf tenderness. LYMPHATICS: No significant lymphadenopathy is noted PSYCHIATRIC: Normal psychiatric evaluation. Limitations: no limitations Course Vital Signs 02/08/19 08:09 Temperature 97.5 F L Pulse Rate 76 Respiratory 18 Rate Blood Pressure 128/83 O2 Sat by Pulse 99 Oximetry Medical Decision Making - Medical Decision Making Computed tomography scan of brain shows no acute abnormality. I will back into reevaluate the patient she stated her headache was much improved. Patient still complained of dizziness. - Lab Data Result diagrams: 02/08/19 08:40 02/08/19 08:40 Lab Results 02/08/19 02/08/19 Range/Units 08:40 08:40 WBC 5.5 (3.8-10.6) k/uL RBC 4.45 (3.80-5.40) m/uL Hgb 14.0 (11.4-16.0) gm/dL Hct 40.6 (34.0-46.0) % MCV 91.1 (80.0-100.0) fL MCH 31.4 (25.0-35.0) pg MCHC 34.4 (31.0-37.0) g/dL RDW 12.0 (11.5-15.5) % Plt Count 379 (150-450) k/uL Neutrophils % 63 % Lymphocytes % 30 % Monocytes % 4 % Eosinophils % 2 % Basophils % 0 % Neutrophils # 3.4 (1.3-7.7) k/uL Lymphocytes # 1.7 (1.0-4.8) k/uL Monocytes # 0.2 (0-1.0) k/uL Eosinophils # 0.1 (0-0.7) k/uL Basophils # 0.0 (0-0.2) k/uL Sodium 139 (137-145) mmol/L Potassium 4.2 (3.5-5.1) mmol/L Chloride 105 (98-107) mmol/L Carbon Dioxide 26 (22-30) mmol/L Anion Gap 8 mmol/L BUN 11 (7-17) mg/dL Creatinine 0.82 (0.52-1.04) mg/dL Est GFR (CKD-EPI)AfAm >90 (>60 ml/min/1.73 sqM) Est GFR (CKD-EPI)NonAf 89 (>60 ml/min/1.73 sqM) Glucose 93 (74-99) mg/dL Calcium 9.5 (8.4-10.2) mg/dL Total Bilirubin 0.7 (0.2-1.3) mg/dL AST 69 H (14-36) U/L ALT 49 H (4-34) U/L Alkaline Phosphatase 73 (38-126) U/L Total Protein 7.2 (6.3-8.2) g/dL Albumin 4.4 (3.5-5.0) g/dL Disposition Clinical Impression: Vertigo Disposition: HOME SELF-CARE Instructions (If sedation given, give patient instructions): Vertigo (ED) Prescriptions: Meclizine [Antivert] 25 mg PO TID #20 tab Is patient prescribed a controlled substance at d/c from ED?: No Referrals: Heather Pearl MD [Primary Care Provider] - 1-2 days Time of Disposition: 10:45
--- NOTE | 2019-02-08 09:11 | CT ---
EXAMINATION TYPE: CT brain wo con DATE OF EXAM: 02/08/2019 COMPARISON: CT brain April 22, 2016 HISTORY: Headache today. CT DLP: 1219 mGycm. Automated Exposure Control for Dose Reduction was Utilized. TECHNIQUE: CT scan of the head is performed without contrast. FINDINGS: There is no acute intracranial hemorrhage, mass effect, or midline shift identified. The ventricles and sulci are within normal limits in size. Luna-white matter differentiation is maintai marivel. The globes are intact and the visualized sinuses are clear. IMPRESSION: No acute intracranial hemorrhage or midline shift is seen. No significant change from pr ior.
[2019-02-08 09:15] LABS: ALT 49 U/L (4-34); AST 69 U/L (14-36); African American GFR (CKD) >90 (>60 ml/min/1.73 sqM); Albumin 4.4 g/dL (3.5-5.0); Alkaline Phosphatase 73 U/L (38-126); Anion Gap 8 mmol/L; Blood Urea Nitrogen 11 mg/dL (7-17); Calcium 9.5 mg/dL (8.4-10.2); Carbon Dioxide 26 mmol/L (22-30); Chloride 105 mmol/L (98-107); Glucose 93 mg/dL (74-99); Non-African American GFR(CKD) 89 (>60 ml/min/1.73 sqM); Potassium 4.2 mmol/L (3.5-5.1); Sodium 139 mmol/L (137-145); Total Bilirubin 0.7 mg/dL (0.2-1.3); Total Protein 7.2 g/dL (6.3-8.2)
[2019-02-08 09:44] LABS: Basophils % (A) 0 %; Eosinophils # (A) 0.1 k/uL (0-0.7); Eosinophils % (A) 2 %; HCT 40.6 % (34.0-46.0); Lymphocytes # (A) 1.7 k/uL (1.0-4.8); Lymphocytes % (A) 30 %; MCH 31.4 pg (25.0-35.0); MCHC 34.4 g/dL (31.0-37.0); MCV 91.1 fL (80.0-100.0); Mean Platelet Volume 7.1; Monocytes # (A) 0.2 k/uL (0-1.0); Monocytes % (A) 4 %; Neutrophils # (A) 3.4 k/uL (1.3-7.7); Neutrophils % (A) 63 %; Platelet Count 379 k/uL (150-450); RBC 4.45 m/uL (3.80-5.40); WBC 5.5 k/uL (3.8-10.6)
[2019-02-08] MEDS ORDERED: KETOROLAC 60 MG/2 ML VIAL IVP STA (09:44)
[2019-02-08 10:53] VITALS: BP 134/76; PULSE 72; TEMP 98.6
== END 2019-02-08 10:46 | disposition home or self-care (01) ==
LOC: EC 08:06
DX: R42 Dizziness and giddiness (principal); R51 Headache; R20.2 Paresthesia of skin; J45.909 Unspecified asthma, uncomplicated; K21.9 Gastro-esophageal reflux disease without esophagitis; Z88.2 Allergy status to sulfonamides; Z79.899 Other long term (current) drug therapy
CPT/HCPCS: 99284; 96374; 96375; 36415; 80053; 85025; 70450; J2405; J1885

== ENCOUNTER 2020-08-02 06:20 | Emergency (ER) | payer BC ==
[2020-08-02 06:31] VITALS: BP 111/80; PULSE 110; RESP 18; TEMP 98.3
--- NOTE | 2020-08-02 06:44 | ED ---
ENT HPI - General Chief complaint: ENT Stated complaint: ENT Time Seen by Provider: 08/02/20 06:32 Source: patient, RN notes reviewed Mode of arrival: ambulatory Limitations: no limitations - History of Present Illness Initial comments: 44-year-old female presents emergency Department chief complaint left ear, left- sided facial pressure, nasal congestion cough. Patient states for few days getting progressive worse. Patient states that she has worsening left ear pain states it feels plugged. No reported fever. She states she has no chest pain or shortness of breath. No neck Stiffness she does admit that she did miss dialysis ALLERGIES has not suffered ALLERGIES. Patient denies any sick contacts. Patient offers no other complaints. - Related Data Home Medications Medication Instructions Recorded Confirmed Omeprazole 20 mg PO DAILY 04/27/18 08/11/18 Albuterol Nebulized [Ventolin 2.5 mg INHALATION Q6H PRN 08/11/18 08/11/18 Nebulized] Montelukast Sodium [Singulair] 10 mg PO DAILY 08/11/18 08/11/18 Previous Rx's Medication Instructions Recorded Meclizine [Antivert] 25 mg PO TID #20 tab 02/08/19 Amoxicillin/Potassium Clav 1 tab PO Q12HR #20 tab 08/02/20 [Augmentin 875-125 Tablet] Fluticasone Nasal [place] [Flonase 2 spr EA NOSTRIL DAILY #1 bottle 08/02/20 Nasal [place]] Allergies Allergy/AdvReac Type Severity Reaction Status Date / Time sulfamethoxazole Allergy Rash/Hives Verified 08/02/20 06:31 [From Bactrim] trimethoprim [From Bactrim] Allergy Rash/Hives Verified 08/02/20 06:31 Review of Systems ROS Statement: Those systems with pertinent positive or pertinent negative responses have been documented in the HPI. ROS Other: All systems not noted in ROS Statement are negative. Past Medical History Past Medical History: Asthma, Diabetes Mellitus, Fibromyalgia, GERD/Reflux Additional Past Medical History / Comment(s): HX OF POLYPS, bowel obstruction History of Any Multi-Drug Resistant Organisms: None Reported Past Surgical History: Section, Cholecystectomy, Hysterectomy Additional Past Surgical History / Comment(s): WISDOM TEETH, LEEP, PLANTAR FASCIAITIS LEFT FOOT Additional Past Anesthesia/Blood Transfusion Reaction / Comment(s): STATES COMES OUT OF ANESTHESIA IN "A PANIC ATTACK" Past Psychological History: Panic Disorder Smoking Status: Never smoker Past Alcohol Use History: None Reported Past Drug Use History: None Reported - Past Family History Mother Family Medical History: No Reported History General Exam General appearance: alert, in no apparent distress Head exam: Present: atraumatic, normocephalic, normal inspection Eye exam: Present: normal appearance, PERRL, EOMI. Absent: scleral icterus, conjunctival injection, periorbital swelling ENT exam: Present: normal oropharynx, mucous membranes moist. Absent: TM's normal bilaterally (Moderate amount fluid noted on left, mild erythema) Neck exam: Present: normal inspection, full ROM, lymphadenopathy (Left anterior). Absent: tenderness, meningismus Respiratory exam: Present: normal lung sounds bilaterally. Absent: respiratory distress, wheezes, rales, rhonchi, stridor Cardiovascular Exam: Present: regular rate, normal rhythm, normal heart sounds. Absent: systolic murmur, diastolic murmur, rubs, gallop, clicks Course Vital Signs 08/02/20 06:27 Temperature 98.3 F Pulse Rate 110 H Respiratory 18 Rate Blood Pressure 111/80 O2 Sat by Pulse 98 Oximetry Medical Decision Making - Medical Decision Making Patient will be treated for eustachian tube dysfunction, upper respiratory infection, left otitis media. Patient advised take [id number] cough and cold medications. Return parameters discussed. Disposition Clinical Impression: Otitis media, URI (upper respiratory infection), Eustachian tube dysfunction Disposition: HOME SELF-CARE Condition: Stable Instructions (If sedation given, give patient instructions): Upper Respiratory Infection (ED), Earache (ED) Additional Instructions: Please return to the Emergency Department if symptoms worsen or any other concerns. Prescriptions: Amoxicillin/Potassium Clav [Augmentin 875-125 Tablet] 1 tab PO Q12HR #20 tab Fluticasone Nasal [place] [Flonase Nasal [place]] 2 spr EA NOSTRIL DAILY #1 bottle Is patient prescribed a controlled substance at d/c from ED?: No Referrals: Heather Pearl MD [Primary Care Provider] - 1-2 days Time of Disposition: 06:44
[2020-08-02] MEDS ORDERED: IBUPROFEN 600 MG TAB PO STA (07:02)
== END 2020-08-02 07:05 | disposition home or self-care (01) ==
LOC: EC 06:20
DX: H66.92 Otitis media, unspecified, left ear (principal); J06.9 Acute upper respiratory infection, unspecified; H69.82 Other specified disorders of Eustachian tube, left ear; K21.9 Gastro-esophageal reflux disease without esophagitis; E11.9 Type 2 diabetes mellitus without complications; J45.909 Unspecified asthma, uncomplicated; Z79.899 Other long term (current) drug therapy; Z88.2 Allergy status to sulfonamides; Z88.1 Allergy status to other antibiotic agents
CPT/HCPCS: 99283

== ENCOUNTER → 2020-08-06 | Outpatient (CLI) | payer BC ==
--- NOTE | 2020-08-06 09:59 | XR ---
EXAMINATION TYPE: XR chest 2V DATE OF EXAM: 08/06/2020 COMPARISON: 04/27/2018 HISTORY: Cough, congestion for 4 days. TECHNIQUE: Frontal and lateral views of the chest are obtained. FINDINGS: Low lung volumes. Heart size is within normal limits. Trachea is midline. No focal consoli dation, pneumothorax or pleural effusion. Mild degenerative changes of the thoracic spine. IMPRESSION: 1. No acute pulmonary disease.
== END | disposition home or self-care (01) ==
LOC: RADXRMAIN 09:39
PROVIDERS: ATTEND Family Medicine
DX: R05 Cough (principal)
CPT/HCPCS: 71046

== ENCOUNTER 2020-09-26 17:13 | Emergency (ER) | payer BC ==
[2020-09-26] MEDS ORDERED: SODIUM CHLORIDE 0.9% 500 ML 500 ML IV STA (18:53)
[2020-09-26] MEDS ORDERED: LORazepam 2 MG/ML INJ IV STA (18:54)
--- NOTE | 2020-09-26 18:58 | ED ---
General Adult HPI - General Chief complaint: Shortness of Breath Stated complaint: sob/chest hurts Time Seen by Provider: 09/26/20 17:25 Source: patient, RN notes reviewed, old records reviewed Mode of arrival: ambulatory Limitations: no limitations - History of Present Illness Initial comments: Is a 45-year-old female who presents emergency Department with a past medical history significant for fibromyalgia. Patient states she was in the emergency d epartment about a month ago complaining of a sore throat and bilateral ear pain. Patient states she was on amoxicillin and finished that course was on 2 courses of steroids since and she can't get over this dryness in her throat but also complains that she's having an asthma attack earlier and she took a breathing treatment and does feel better. Patient denies any chest pain. Patient denies any numbness weakness. Patient denies any lightheadedness. Patient states she has had an intermittent headache on and off for the last month. Patient denies any palpitations. Patient denies any recent fever chills or cough per patient states his throat is still dry but she is able to eat and drink. Patient does states she has a history of anxiety as well. Patient denies any abdominal pain patient's nausea vomiting. Patient denies any leg pain or calf tenderness. Patient denies being on any control. - Related Data Home Medications Medication Instructions Recorded Confirmed Omeprazole 20 mg PO DAILY 04/27/18 08/11/18 Albuterol Nebulized [Ventolin 2.5 mg INHALATION Q6H PRN 08/11/18 08/11/18 Nebulized] Montelukast Sodium [Singulair] 10 mg PO DAILY 08/11/18 08/11/18 Previous Rx's Medication Instructions Recorded Meclizine [Antivert] 25 mg PO TID #20 tab 02/08/19 Amoxicillin/Potassium Clav 1 tab PO Q12HR #20 tab 08/02/20 [Augmentin 875-125 Tablet] Fluticasone Nasal [place] [Flonase 2 spr EA NOSTRIL DAILY #1 bottle 08/02/20 Nasal [place]] Allergies Allergy/AdvReac Type Severity Reaction Status Date / Time sulfamethoxazole Allergy Rash/Hives Verified 09/26/20 17:27 [From Bactrim] trimethoprim [From Bactrim] Allergy Rash/Hives Verified 09/26/20 17:27 Review of Systems ROS Statement: Those systems with pertinent positive or pertinent negative responses have been documented in the HPI. ROS Other: All systems not noted in ROS Statement are negative. Past Medical History Past Medical History: Asthma, Diabetes Mellitus, Fibromyalgia, GERD/Reflux Additional Past Medical History / Comment(s): HX OF POLYPS, bowel obstruction History of Any Multi-Drug Resistant Organisms: None Reported Past Surgical History: Section, Cholecystectomy, Hysterectomy Additional Past Surgical History / Comment(s): WISDOM TEETH, LEEP, PLANTAR FASCIAITIS LEFT FOOT Additional Past Anesthesia/Blood Transfusion Reaction / Comment(s): STATES COMES OUT OF ANESTHESIA IN "A PANIC ATTACK" Past Psychological History: Panic Disorder Smoking Status: Never smoker Past Alcohol Use History: None Reported Past Drug Use History: None Reported - Past Family History Mother Family Medical History: No Reported History General Exam - General Exam Comments Initial Comments: GENERAL: Patient is well-developed and well-nourished. Patient is nontoxic and well- hydrated and is in mild distress. ENT: Neck is soft and supple. No significant lymphadenopathy is noted. Oropharynx is clear. Moist mucous membranes. Neck has full range of motion without eliciting any pain. EYES: The sclera were anicteric and conjunctiva were pink and moist. Extraocular movements were intact and pupils were equal round and reactive to light. Eyelids were unremarkable. PULMONARY: Unlabored respirations. Good breath sounds bilaterally. No audible rales rhonchi or wheezing was noted. CARDIOVASCULAR: There is a regular rate and rhythm without any murmurs gallops or rubs. ABDOMEN: Soft and nontender with normal bowel sounds. SKIN: Skin is clear with no lesions or rashes and otherwise unremarkable. NEUROLOGIC: Patient is alert and oriented x3. Cranial nerves II through XII are grossly intact. Motor and sensory are also intact. Normal speech, volume and content. Symmetrical smile. MUSCULOSKELETAL: Normal extremities with adequate strength and full range of motion. No lower extremity swelling or edema. No calf tenderness. LYMPHATICS: No significant lymphadenopathy is noted PSYCHIATRIC: Patient is very anxious Limitations: no limitations Course Vital Signs 09/26/20 09/26/20 09/26/20 17:23 19:27 20:00 Temperature 97.7 F Pulse Rate 77 73 77 Respiratory 17 18 16 Rate Blood Pressure 121/83 121/53 111/82 O2 Sat by Pulse 99 99 97 Oximetry Medical Decision Making - Medical Decision Making EKG shows normal sinus rhythm at 85 bpm SD interval 252 QRS is 76 QT interval 384 QTC is 456 per patient's EKG shows no ST segment elevation or depression. I'll back into the room and reevaluated the patient after she had Ativan she was sleeping and was in no distress at all. When I went back in and asked her what was bothering this point she stated that her throat still felt sore but it is been doing that for the last month. Patient states she was willing to follow-up with an ENT. - Lab Data Result diagrams: 09/26/20 19:21 09/26/20 19:21 Lab Results 09/26/20 09/26/20 09/26/20 Range/Units 19: 19: 19:21 WBC 7.9 (3.8-10.6) k/uL RBC 4.49 (3.80-5.40) m/uL Hgb 13.9 (11.4-16.0) gm/dL Hct 41.5 (34.0-46.0) % MCV 92.4 (80.0-100.0) fL MCH 30.9 (25.0-35.0) pg MCHC 33.4 (31.0-37.0) g/dL RDW 13.4 (11.5-15.5) % Plt Count 439 (150-450) k/uL MPV 7.2 Neutrophils % 49 % Lymphocytes % 43 % Monocytes % 4 % Eosinophils % 3 % Basophils % 1 % Neutrophils # 3.8 (1.3-7.7) k/uL Lymphocytes # 3.4 (1.0-4.8) k/uL Monocytes # 0.3 (0-1.0) k/uL Eosinophils # 0.3 (0-0.7) k/uL Basophils # 0.1 (0-0.2) k/uL PT 10.2 (9.0-12.0) sec INR 0.9 (<1.2) APTT 24.7 (22.0-30.0) sec Sodium (137-145) mmol/L Potassium (3.5-5.1) mmol/L Chloride (98-107) mmol/L Carbon Dioxide (22-30) mmol/L Anion Gap mmol/L BUN (7-17) mg/dL Creatinine (0.52-1.04) mg/dL Est GFR (CKD-EPI)AfAm (>60 ml/min/1.73 sqM) Est GFR (CKD-EPI)NonAf (>60 ml/min/1.73 sqM) Glucose (74-99) mg/dL Calcium (8.4-10.2) mg/dL Total Bilirubin (0.2-1.3) mg/dL AST (14-36) U/L ALT (4-34) U/L Alkaline Phosphatase (38-126) U/L Troponin I (0.000-0.034) ng/mL Total Protein (6.3-8.2) g/dL Albumin (3.5-5.0) g/dL Group A Strep Rapid Negative (Negative) 09/26/20 09/26/20 Range/Units 19:21 19:21 WBC (3.8-10.6) k/uL RBC (3.80-5.40) m/uL Hgb (11.4-16.0) gm/dL Hct (34.0-46.0) % MCV (80.0-100.0) fL MCH (25.0-35.0) pg MCHC (31.0-37.0) g/dL RDW (11.5-15.5) % Plt Count (150-450) k/uL MPV Neutrophils % % Lymphocytes % % Monocytes % % Eosinophils % % Basophils % % Neutrophils # (1.3-7.7) k/uL Lymphocytes # (1.0-4.8) k/uL Monocytes # (0-1.0) k/uL Eosinophils # (0-0.7) k/uL Basophils # (0-0.2) k/uL PT (9.0-12.0) sec INR (<1.2) APTT (22.0-30.0) sec Sodium 136 L (137-145) mmol/L Potassium 3.9 (3.5-5.1) mmol/L Chloride 105 (98-107) mmol/L Carbon Dioxide 24 (22-30) mmol/L Anion Gap 7 mmol/L BUN 10 (7-17) mg/dL Creatinine 0.62 (0.52-1.04) mg/dL Est GFR (CKD-EPI)AfAm >90 (>60 ml/min/1.73 sqM) Est GFR (CKD-EPI)NonAf >90 (>60 ml/min/1.73 sqM) Glucose 101 H (74-99) mg/dL Calcium 9.0 (8.4-10.2) mg/dL Total Bilirubin 0.1 L (0.2-1.3) mg/dL AST 26 (14-36) U/L ALT 17 (4-34) U/L Alkaline Phosphatase 68 (38-126) U/L Troponin I <0.012 (0.000-0.034) ng/mL Total Protein 6.2 L (6.3-8.2) g/dL Albumin 3.7 (3.5-5.0) g/dL Group A Strep Rapid (Negative) Disposition Clinical Impression: Pharyngitis, Postnasal drip Disposition: HOME SELF-CARE Condition: Good Instructions (If sedation given, give patient instructions): Pharyngitis (ED), Postnasal Drip (DC) Is patient prescribed a controlled substance at d/c from ED?: No Referrals: Larisa Suggs DO [Primary Care Provider] - 1-2 days Sravan Bowling MD [STAFF PHYSICIAN] - 1-2 days Time of Disposition: 20:18
[2020-09-26 19:34] LABS: Basophils # (A) 0.1 k/uL (0-0.2); Basophils % (A) 1 %; Eosinophils # (A) 0.3 k/uL (0-0.7); Eosinophils % (A) 3 %; HCT 41.5 % (34.0-46.0); HGB 13.9 gm/dL (11.4-16.0); Lymphocytes # (A) 3.4 k/uL (1.0-4.8); Lymphocytes % (A) 43 %; MCH 30.9 pg (25.0-35.0); MCHC 33.4 g/dL (31.0-37.0); MCV 92.4 fL (80.0-100.0); Mean Platelet Volume 7.2; Monocytes # (A) 0.3 k/uL (0-1.0); Monocytes % (A) 4 %; Neutrophils # (A) 3.8 k/uL (1.3-7.7); Neutrophils % (A) 49 %; Platelet Count 439 k/uL (150-450); RBC 4.49 m/uL (3.80-5.40); RDW 13.4 % (11.5-15.5); WBC 7.9 k/uL (3.8-10.6)
[2020-09-26 19:48] LABS: ALT 17 U/L (4-34); AST 26 U/L (14-36); African American GFR (CKD) >90 (>60 ml/min/1.73 sqM); Albumin 3.7 g/dL (3.5-5.0); Alkaline Phosphatase 68 U/L (38-126); Anion Gap 7 mmol/L; Blood Urea Nitrogen 10 mg/dL (7-17); Carbon Dioxide 24 mmol/L (22-30); Chloride 105 mmol/L (98-107); Glucose 101 mg/dL (74-99); Non-African American GFR(CKD) >90 (>60 ml/min/1.73 sqM); Potassium 3.9 mmol/L (3.5-5.1); Sodium 136 mmol/L (137-145); Total Bilirubin 0.1 mg/dL (0.2-1.3); Total Protein 6.2 g/dL (6.3-8.2)
--- NOTE | 2020-09-26 19:53 | XR ---
EXAMINATION TYPE: XR chest 2V DATE OF EXAM: 09/26/2020 COMPARISON: 08/06/2020 HISTORY: Difficulty breathing TECHNIQUE: 2 views FINDINGS: Heart and mediastinum are normal. Lungs are clear. Diaphragm is normal. Bony thorax appears normal. IMPRESSION: Normal chest. No change.
[2020-09-26 19:57] LABS: INR 0.9 (<1.2); Partial Thromboplastin Time 24.7 sec (22.0-30.0); Prothrombin Time 10.2 sec (9.0-12.0)
[2020-09-26 20:07] VITALS: PULSE 77
[2020-09-27 00:18] VITALS: BP 123/65; RESP 20; TEMP 98.3
== END 2020-09-26 21:00 | disposition home or self-care (01) ==
LOC: EC 17:13
DX: J02.9 Acute pharyngitis, unspecified (principal); R09.82 Postnasal drip; H92.03 Otalgia, bilateral; R06.02 Shortness of breath; J45.909 Unspecified asthma, uncomplicated; K21.9 Gastro-esophageal reflux disease without esophagitis; E11.9 Type 2 diabetes mellitus without complications; Z88.2 Allergy status to sulfonamides; Z88.0 Allergy status to penicillin; Z79.51 Long term (current) use of inhaled steroids; Z79.899 Other long term (current) drug therapy
CPT/HCPCS: 36415; 93005; 80053; 84484; 85025; 85610; 85730; 87081; 87430; 71046; 99285; 96374; 96361; J2060

== ENCOUNTER → 2021-01-01 | Outpatient (CLI) | payer BC ==
[~2021-01-01] MED LIST changes: +BAMLANIVIMAB (EUA) 700 MG, ETESEVIMAB (EUA) 1,400 MG in SODIUM CHLORIDE 0.9% 50 ML IVPB ONE; -LACTATED RINGERS 1,000 ML IV SCH; +SODIUM CHLORIDE 0.9% 50 ML IVPB ONE; +SODIUM CHLORIDE 0.9% 500 ML 500 ML in EMPTY BAG 1 BAG IV PRN
[2021-01-01 10:57] VITALS: PULSE 97
[2021-01-01 12:03] VITALS: BP 132/82; RESP 18; TEMP 97.6
== END ==
LOC: PROCWHC3 10:15
PROVIDERS: ATTEND Nurse Practitioner Adult Health
DX: U07.1 COVID-19 (principal); E66.9 Obesity, unspecified; Z68.32 Body mass index [BMI] 32.0-32.9, adult; Z88.2 Allergy status to sulfonamides
CPT/HCPCS: 96360; J3490; M0243

== ENCOUNTER → 2021-04-08 | Outpatient (CLI) | payer BC ==
--- NOTE | 2021-04-08 12:59 | CT ---
EXAMINATION TYPE: CT abdomen pelvis w con DATE OF EXAM: 04/08/2021 COMPARISON: CT dated 08/11/2018 HISTORY: Upper abdominal pain CT DLP: 1486.4 mGycm Automated exposure control for dose reduction was used. TECHNIQUE: Helical acquisition of images was performed from the lung bases through the pelvis. CONTRAST: Performed with Oral Contrast and with IV Contrast, patient injected with 100 mL of Isovue 300. FINDINGS: Unremarkable stomach, duodenum and small bowel with no evidence of bowel obstruction. Scattered uncom plicated colonic diverticulosis with moderate fecal loading of the colon. Normal appendix. Previous h ysterectomy. Interval enlargement off the right ovary/adnexa with multiple variable sized cysts measuring up to 4. 5 cm, progressed compared to the previous CT scan. The right ovary is inseparable today from the infe rior aspect of the cecum which could be due to adhesions or endometriosis however malignant right ova chago/adnexal process cannot be excluded. The left ovary/adnexa has also progressed in size demonstrat ing a few cystic areas measuring up to 3.1 cm compared to 2.7 cm previously. Recommend correlation wi tumor markers and pelvic ultrasound results. Suspected pelvic adhesions. Known right hepatic hemangiomas. No new hepatic focal lesion identified. Previous cholecystectomy. Unremarkable spleen with stable accessory spleens. Unremarkable pancreas, a drenals and kidneys. No gross urinary bladder abnormality. Unremarkable abdominal aorta. No suspiciou s lymphadenopathy or sizable ascites. Fat-containing umbilical hernia. Unremarkable lung bases. No ag gressive bone lesion. IMPRESSION: 1. No evidence of bowel obstruction or acute bowel abnormality. 2. Interval enlargement of the ovaries/adnexa with multiple cystic areas as described above. The righ t ovary is inseparable today from the tip of the cecum and possibly the appendix. This could be relat ed to pelvic adhesions or endometriosis however malignant ovarian process cannot be excluded. Please correlate with history of endometriosis, with tumor markers and with pelvic ultrasound results. Other incidental findings as described above.
== END | disposition home or self-care (01) ==
LOC: RADCTMAIN 10:10
PROVIDERS: ATTEND Physician Assistant
DX: N83.292 Other ovarian cyst, left side (principal); N83.291 Other ovarian cyst, right side
CPT/HCPCS: 74177; Q9967

== ENCOUNTER → 2022-01-10 | Outpatient (CLI) | payer BC ==
--- NOTE | 2022-01-10 15:31 | CT ---
EXAMINATION TYPE: CT abdomen pelvis w con DATE OF EXAM: 01/10/2022 COMPARISON: 03/31/2021 HISTORY: abdominal pain and bloating hx of bowel obstruction CT DLP: 2185 mGycm Automated exposure control for dose reduction was used. TECHNIQUE: Helical acquisition of images was performed from the lung bases through the pelvis. CONTRAST: Performed with Oral Contrast and with IV Contrast, patient injected with 70 mL of Isovue 300. FINDINGS: The lung bases are clear. There are 2 ill-defined small low-density lesions within the right lobe of the liver which were seen previously and are stable and most likely represent benign hemangiomas. There are surgical absence of gallbladder. There is no focal mass or organomegaly involving the pancreas, spleen or adrenal glands. The kidneys excrete contrast promptly and symmetrically is no solid renal mass or hydronephrosis. The re is no retroperitoneal adenopathy or hemorrhage in the caliber of the abdominal aorta is normal. The bowel loops are normal in caliber is no dilatation or obstruction. No inflammatory changes are id entified within the bowel wall or mesentery. There is no free intraperitoneal air or fluid. There is no pelvic mass or fluid, abscess or adenopathy. There are surgical absence of uterus. Soft tissues and osseous structures are intact. IMPRESSION: 1. No acute changes within the abdomen including no bowel obstruction, bowel inflammation, free air or free fluid. 2. Surgical absence of the gallbladder and uterus. 3. 2 stable ill-defined low-density lesions within the liver which are seen previously and are consis tent with benign hemangiomas.
== END | disposition home or self-care (01) ==
LOC: RADCTMAIN 12:14
PROVIDERS: ATTEND Family Medicine
DX: K64.9 Unspecified hemorrhoids (principal); K92.1 Melena; K59.00 Constipation, unspecified; Z87.19 Personal history of other diseases of the digestive system; Z90.49 Acquired absence of other specified parts of digestive tract
CPT/HCPCS: 74177; Q9967

== ENCOUNTER → 2022-05-01 | Outpatient (CLI) | payer BC ==
--- NOTE | 2022-05-02 08:03 | MM ---
Reason for Exam: Screening (asymptomatic). Last mammogram was performed 5 year(s) and 9 month(s) ago. Patient History: Menarche at age 13. First Full-Term at age 22. Hysterectomy at age 45. Postmenopausal. Hormonal Contraceptives for 4 years from age 15 until age 19. Maternal grandmother had breast cancer, age 60. Risk Values: Loreto 5 year model risk: 0.7%. NCI Lifetime model risk: 8.6%. Prior Study Comparison: 10/24/2013 Bilateral Diagnostic Mammogram, [facility]. 06/07/2015 Bilateral Screening Mammogram, [facility]. 07/10/2016 Bilateral Screening Mammogram, [facility]. Tissue Density: The breast tissue is heterogeneously dense. This may lower the sensitivity of mammography. Findings: Analyzed By CAD. New area of distortion 8 cm from nipple slightly inner slightly lower left breast. Additional views are recommended. No suspicious microcalcifications are seen at this time. Overall Assessment: Incomplete: need additional imaging evaluation, BI-RAD 0 Management: Diagnostic Mammogram of the left breast. A clinical breast exam by your physician is recommended on an annual basis and results should be correlated with mammographic findings. Electronically signed and approved by: Trung West M.D. Radiologis
== END | disposition home or self-care (01) ==
LOC: RADMAMWWP 14:18
PROVIDERS: ATTEND Family Medicine
DX: Z12.31 Encounter for screening mammogram for malignant neoplasm of breast (principal); Z78.0 Asymptomatic menopausal state; Z80.3 Family history of malignant neoplasm of breast
CPT/HCPCS: 77063; 77067

== ENCOUNTER → 2022-05-08 | Outpatient (CLI) | payer BC ==
--- NOTE | 2022-05-08 08:24 | USB ---
Reason for Exam: Additional evaluation requested from abnormal screening. Patient History: Menarche at age 13. First Full-Term at age 22. Hysterectomy at age 45. Postmenopausal. Hormonal Contraceptives for 4 years from age 15 until age 19. Maternal grandmother had breast cancer, age 60. Risk Values: Loreto 5 year model risk: 0.7%. NCI Lifetime model risk: 8.6%. Technique: Method: Targeted. Patient Position: Supine. Prior Study Comparison: 06/07/2015 Bilateral Screening Mammogram, [facility]. 07/10/2016 Bilateral Screening Mammogram, [facility]. 05/01/2022 Bilateral MG 3D screening mammo w/cad, [facility]. Findings: The upper outer quadrant of the left breast, the axilla of the left breast and the retroareolar of the left breast were scanned. 0.6 x 0.5 x 0.5 cm irregular hypoechoic solid mass at left 400 5CN.Imaged: Ultrasound imaging of: Area of concern, retroareolar region and axilla. Hypoechoic irregular border mass at 4:00 5 cm from nipple measuring 6 x 5 x 5 mm. Overall Assessment: Highly suggestive of malignancy, BI-RAD 5 Management: Ultrasound Core Biopsy of the left breast. A clinical breast exam by your physician is recommended on an annual basis and results should be correlated with mammographic findings. This exam should not preclude additional follow-up of suspicious palpable abnormalities. Results were given to the patient verbally at the time of exam. Electronically signed and approved by: Ayaan Daniels DO
--- NOTE | 2022-05-08 08:50 | MM ---
Reason for Exam: Additional evaluation requested from abnormal screening. Last screening mammogram was performed less than 1 month ago. Patient History: Menarche at age 13. First Full-Term at age 22. Hysterectomy at age 45. Postmenopausal. Hormonal Contraceptives for 4 years from age 15 until age 19. Maternal grandmother had breast cancer, age 60. Risk Values: Loreto 5 year model risk: 0.7%. NCI Lifetime model risk: 8.6%. Prior Study Comparison: 06/07/2015 Bilateral Screening Mammogram, [facility]. 07/10/2016 Bilateral Screening Mammogram, [facility]. 05/01/2022 Bilateral MG 3D screening mammo w/cad, [facility]. Tissue Density: Left: The breast tissue is heterogeneously dense. This may lower the sensitivity of mammography. Findings: Analyzed By CAD. Persistent left area of architectural distortion seen on 2 views approximately 7-9 cm to the nipple measuring up to 18 mm in total architectural distortion with central 5 mm solid appearing mass on slice 17 of 87 on [facility] 3-D imaging. In the outer lower quadrant. Overall Assessment: Incomplete: need additional imaging evaluation, BI-RAD 0 Management: Diagnostic Breast Ultrasound of the left breast. A clinical breast exam by your physician is recommended on an annual basis and results should be correlated with mammographic findings. This exam should not preclude additional follow-up of suspicious palpable abnormalities. Results were given to the patient verbally at the time of exam. Electronically signed and approved by: Ayaan Daniels DO
== END | disposition home or self-care (01) ==
LOC: RADMAMWWP 07:18
PROVIDERS: ATTEND Family Medicine
DX: R92.8 Other abnormal and inconclusive findings on diagnostic imaging of breast (principal); Z78.0 Asymptomatic menopausal state; Z80.3 Family history of malignant neoplasm of breast
CPT/HCPCS: 77061; 77065

== ENCOUNTER → 2022-05-19 | Outpatient (CLI) | payer BC ==
--- NOTE | 2022-05-19 22:07 | CT ---
EXAMINATION TYPE: CT abdomen pelvis wo con DATE OF EXAM: 05/19/2022 COMPARISON: 01/10/2022 INDICATION: GROIN PAIN DLP: 1258 mGycm, Automated exposure control for dose reduction was used. CONTRAST: 0 mL of Isovue 300. Study performed with Oral Contrast TECHNIQUE: Axial images were obtained from above the diaphragm to the pubic rami in the axial plane a t 5 mm thick sections. Reconstructed images are reviewed on the computer in the coronal plane. FINDINGS: Limited CT sections are obtained the lung bases. The lung bases are clear. CT ABDOMEN: Liver: Normal Spleen: Normal Pancreas: Normal Adrenal glands: The adrenal glands are normal. Gallbladder: Surgically absent Kidneys: No masses are evident. No hydronephrosis is present. No cysts are present. No renal stone s are evident Aorta: Normal Inferior vena cava: Normal. CT PELVIS: Loops of bowel within the abdomen and pelvis are normal. Oral contrast extends to the distal small demetri wel loops and terminal ileum. There are loops of bowel which are incompletely distended or lack or al contrast limiting their evaluation. Appendix: Normal as visualized. Urinary bladder: Normal. Genitourinary structures: Uterus and ovaries are not identified. Osseous structures: No suspicious lytic or sclerotic lesions. Small bone island maybe in the anterior left sacrum. IMPRESSIONS: 1. No suspicious abnormality account for groin pain.
== END | disposition home or self-care (01) ==
LOC: RADCTMAIN 10:19
PROVIDERS: ATTEND Family Medicine
DX: I88.9 Nonspecific lymphadenitis, unspecified (principal); R10.31 Right lower quadrant pain
CPT/HCPCS: 74176

== ENCOUNTER → 2022-05-27 | Day surgery (SDC) | payer BC ==
--- NOTE | 2022-06-02 09:54 | MM ---
Reason for Exam: Post Procedure Mammogram. Last screening mammogram was performed less than 1 month ago. Patient History: Menarche at age 13. First Full-Term at age 22. Hysterectomy at age 45. Postmenopausal. Hormonal Contraceptives for 4 years from age 15 until age 19. Maternal grandmother had breast cancer, age 60. Risk Values: Loreto 5 year model risk: 0.7%. NCI Lifetime model risk: 8.6%. Prior Study Comparison: 07/10/2016 Bilateral Screening Mammogram, [facility]. 05/01/2022 Bilateral MG 3D screening mammo w/cad, [facility]. 05/08/2022 Left MG 3D work up w/cad , [facility]. Tissue Density: Left: The breast tissue is heterogeneously dense. This may lower the sensitivity of mammography. Pathology Description: Location: 4 o'clock. Marker Left Behind. Needle Type: Celero Cores: 2 Gauge: 12 The procedure of ultrasound guided core biopsy was explained to the patient. Benefits, alternatives, and risks were discussed. An informed consent was then obtained. The patient was placed in supine positioning for imaging and for the procedure. Preprocedure ultrasound redemonstrates a vague regular hypoechoic area at 4:00 position 5 cm distance from nipple only measuring near 5 mm in size. The overlying skin was prepped and draped in usual sterile fashion. Lidocaine with epinephrine is used as anesthetic into the skin and subcutaneous tissue up to area of concern in the left breast. Under ultrasound guidance, a vacuum assisted biopsy gun device was used to obtain 2 core samples. Following this, a biopsy clip was left in region of lesion. The patient tolerated the procedure well without any immediate complication. The patient was kept in the radiology department for short stay after the procedure and then discharged home in stable condition. Postprocedure mammogram: The patient was transferred to mammography for physician ordered post procedure mammogram for clip placement verification. Clip is placed. I do not know how it is so low in position given I came from left lateral approach and was above the nipple during sampling and during the biopsy. Impression: Successful, ultrasound guided core biopsy of area of concern in the left breast, full pathology results to follow. Low to intermediate index of suspicion noted at time of procedure. Pathology Results: LEFT BREAST, FOUR O'CLOCK, ULTRASOUND GUIDED NEEDLE CORE BIOPSY: Fibrocystic changes including cysts and sclerosing adenosis with calcifications. Overall Assessment: Suspicious, BI-RAD 4 Assessment: MG diagnostic mammo LT wo CAD. - Left: Suspicious, BI-RAD 4. Management: Repeat Biopsy of the left breast. Electronically signed and approved by: Gianluca Olmedo M.D.
== END ==
LOC: RADUSWWP 12:34
PROVIDERS: ATTEND Surgery
DX: N60.22 Fibroadenosis of left breast (principal); N60.12 Diffuse cystic mastopathy of left breast
CPT/HCPCS: 88305; 77065; 19083; A4648

== ENCOUNTER → 2022-05-30 | Outpatient (CLI) | payer BC ==
[2022-05-30 10:35] VITALS: BP 130/87; PULSE 86; RESP 17; TEMP 98
--- NOTE | 2022-05-30 11:13 | P.GSHP ---
History of Present Illness H&P Date: 05/30/22 Chief Complaint: Discordant left core biopsy Allison is a 46-year-old white female seen in consultation for Dr. Suggs regarding a core biopsy of the left breast. [place] [address] this was considered BIRADS 0 and an ultrasound of the left breast was recommended. [place] [address] a 0.6 x 0.5 cm irregular hypoechoic solid lesion was noted at the 4 o'clock position. This was felt to be highly suggestive of malignancy. An ultrasound core biopsy was recommended. Ultrasound core biopsy was performed on . This was fibrocystic changes. This was felt to be discordant. This was reviewed with Dr Sara Gandhi. The patient complains of intermittent pain in the lateral aspect of the left breast. She is not complaining of any specific lumps, masses, or nodules in the breast. She is not complaining of any nipple discharge but she does have some intermittent left nipple itching. She has never had any surgery on either breast. Patient herself had precancerous lesions on her cervix at the age of 18. Caffeine: 1 1/2 liter MTN DEW, and 1 coffee/day nicotine: none chocolate: occasional BCP: 5 years in the past, stop using it at 21 hormones: started May 2021, but she stopped them Family History: maternal grandmother: ovarian and breast cancer maternal grandfather: lymohoma maternal uncle: stomach cancer paternal grandmother: lymphoma Hormonal History: menarche: 14 , breast fed; no, age at first :22 Hysterectomy: at 33 done for endometriosis, completion remove ovaries at 45 Surgical History: Hysterectomy at 33, followed by completion with removal of ovaries a 45 LEEP 1996 2003: tubaligation 2009: gallbladder 2013: planter fasciitis Medical History: fibromyaglia Social History: nicotine: none alcohol: rare drugs: none - Constitutional Constitutional: Reports sweats - EENT Eyes: denies blurred vision, denies pain Ears: deny: decreased hearing, tinnitus Ears, nose, mouth and throat: Denies headache, Denies sore throat - Breasts Breasts: bilateral: as per HPI - Cardiovascular Cardiovascular: Denies chest pain, Denies shortness of breath - Respiratory Respiratory: Denies cough, Denies 7 - Gastrointestinal Gastrointestinal: Denies abdominal pain, Denies diarrhea, Denies nausea, Denies vomiting - Genitourinary (Female) Genitourinary: Denies dysuria, Denies hematuria - Menstruation Menstruation: Reports post hysterectomy - Musculoskeletal Musculoskeletal: Reports myalgias - Integumentary Comment: blotchy skin Integumentary: Denies pruritus, Denies rash - Neurological Neurological: Denies numbness, Denies weakness - Psychiatric Psychiatric: Denies anxiety, Denies depression - Endocrine Endocrine: Reports weight change, Denies fatigue - Hematologic/Lymphatic Comment: none - Allergic/Immunologic Allergic/Immunologic: Reports seasonal allergies Past Medical History Past Medical History: GERD/Reflux Additional Past Medical History / Comment(s): HX OF POLYPS, BLOOD IN STOOL, ABD PAIN History of Any Multi-Drug Resistant Organisms: None Reported Past Surgical History: Section, Cholecystectomy, Hysterectomy Additional Past Surgical History / Comment(s): WISDOM TEETH, LEEP, PLANTAR FASCIAITIS LEFT FOOT Additional Past Anesthesia/Blood Transfusion Reaction / Comment(s): STATES COMES OUT OF ANESTHESIA IN "A PANIC ATTACK" Past Psychological History: No Psychological Hx Reported Smoking Status: Former smoker Past Alcohol Use History: None Reported Additional Past Alcohol Use History / Comment(s): smoked as a young adult Past Drug Use History: None Reported - Past Family History Mother Family Medical History: No Reported History Medications and Allergies Home Medications Medication Instructions Recorded Confirmed Type Albuterol Nebulized [Ventolin 2.5 mg INHALATION Q6H PRN 08/11/18 05/30/22 History Nebulized] Amitriptyline HCl [Elavil] 10 mg PO HS 05/09/22 05/30/22 History Promethazine [Phenergan] 25 mg PO DAILY 05/30/22 05/30/22 History Allergies Allergy/AdvReac Type Severity Reaction Status Date / Time sulfamethoxazole Allergy Rash/Hives Verified 05/30/22 10:31 [From Bactrim] trimethoprim [From Bactrim] Allergy Rash/Hives Verified 05/30/22 10:31 Surgical - Exam Vital Signs Temp Pulse Resp BP Pulse Ox 98.0 F 86 17 130/87 98 05/30/22 10:33 05/30/22 10:33 05/30/22 10:33 05/30/22 10:33 05/30/22 10:33 - General no distress - Eyes normal ocular movement - Neck trachea midline - Respiratory normal respiratory effort, clear to auscultation - Cardiovascular Rhythm: regular Heart Sounds: normal: S1, S2 - Abdomen Abdomen: soft, non tender, no guarding, no rigid, no rebound - Integumentary normal turgor - Neurologic no disoriented, no combative - Musculoskeletal normal gait, normal posture - Psychiatric oriented to time, oriented to person, oriented to place, speech is normal, memory intact Breast Exam: BRA: 40DDD Inspection: Bilateral grade 3 ptosis, bilateral in the left axilla Palpation: Right breast: Multiple positional exam fibrocystic changes no dominant masses or nodules of concern Right axilla: No adenopathy of concern Left breast: Multi-positional exam fibrocystic changes no dominant masses or nodules of concern Left axilla: No adenopathy of concern Results Mammogram and ultrasound reviewed in detail with Dr. Gandhi, there is concern that the area on ultrasound is discordant to the biopsy findings Assessment and Plan Assessment: Impression: Fibrocystic breast changes Strong family history of cancer Discordant left breast ultrasound-guided core biopsy Plan: Dr. Gandhi has recommended localization of the clip as he believes the clip was in the vicinity of the lesion rather than ultrasound guided localization of the lesion, therefore we would recommend mammographic localization of the clip and confirm that this is in the area of ultrasound abnormality. Left breast needle localization of area of concern with resection in the operating room, possible optical plastic tissue transfer. consider genetic testing Removal of nevus left axilla CC: Dr. Suggs
== END ==
LOC: WWCWWP 10:09
PROVIDERS: ATTEND Surgery
DX: N60.11 Diffuse cystic mastopathy of right breast (principal); N60.12 Diffuse cystic mastopathy of left breast; R92.8 Other abnormal and inconclusive findings on diagnostic imaging of breast; K21.9 Gastro-esophageal reflux disease without esophagitis; Z79.899 Other long term (current) drug therapy; Z87.891 Personal history of nicotine dependence; Z88.1 Allergy status to other antibiotic agents; Z88.2 Allergy status to sulfonamides; Z90.722 Acquired absence of ovaries, bilateral; Z90.49 Acquired absence of other specified parts of digestive tract; Z80.3 Family history of malignant neoplasm of breast; M79.7 Fibromyalgia

== ENCOUNTER 2022-06-17 09:46 | Day surgery (SDC) | payer BC ==
[2022-06-12 13:44] VITALS: BMI 32.3
[~2022-06-17 09:46] MED LIST changes: -BAMLANIVIMAB (EUA) 700 MG, ETESEVIMAB (EUA) 1,400 MG in SODIUM CHLORIDE 0.9% 50 ML IVPB ONE; +DEXAMETHASONE SOD PHOSPHATE 4 MG/ML 1 ML VIAL IV ONE; +HEPARIN SODIUM,PORCINE/PF 5,000 UNIT/0.5 ML SYRINGE SQ PRN; +LACTATED RINGERS 1,000 ML IV SCH; +LIDOCAINE 1% (10MG/ML) FOR IV START INTRADERMA PRN; +MIDAZOLAM 2 MG/2 ML VIAL IV PRN; +ONDANSETRON 4 MG/2 ML VIAL IVP ONE; +Pre Op ABX Message 1 EACH MISC MISCELLANE ONE; -SODIUM CHLORIDE 0.9% 50 ML IVPB ONE; -SODIUM CHLORIDE 0.9% 500 ML 500 ML in EMPTY BAG 1 BAG IV PRN
[2022-06-17] MEDS ORDERED: ALPRAZolam 0.5 MG TAB ONE (10:34)
[2022-06-17 10:51] LABS: Glucose,Whole Blood 83 mg/dL (70-110)
[2022-06-17] MEDS ORDERED: LIDOCAINE 1% (10MG/ML) FOR IV START SQ ONE (11:05)
[2022-06-17] MEDS ORDERED: PHENYLEPHRINE-0.9% NACL SYG 1,000 MCG/10 ML SYRINGE ONE (12:38)
[2022-06-17] MEDS ORDERED: MIDAZOLAM 2 MG/2 ML VIAL ONE (12:38)
[2022-06-17] MEDS ORDERED: PROPOFOL 10 MG/ML 20 ML VIAL IV ONE (12:38)
[2022-06-17] MEDS ORDERED: LIDOCAINE 2% INJ 20 MG/ML (2 ML VIAL) ONE (12:38)
[2022-06-17] MEDS ORDERED: fentaNYL (PF) 50 MCG/ML 2 ML AMP ONE (12:38)
--- NOTE | 2022-06-17 13:39 | P.OP ---
Date of Procedure: 06/17/22 Preoperative Diagnosis: discordant left ultrasound-guided core biopsy, left axillary nevus of concern Postoperative Diagnosis: Same Procedure(s) Performed: Excision left axillary nevus, ultrasound guided localization and resection of lesion left breast Anesthesia: NORMNA Surgeon: Enid Benitez Estimated Blood Loss (ml): 5 IV fluids (ml): 700 Pathology: other (Left axillary nevus, lesion left breast) Condition: stable Disposition: same day Indications for Procedure: Abnormal nevus, discordant left breast core biopsy Operative Findings: Abnormal nevus left axilla, discordant ultrasound core biopsy Description of Procedure: The area of concern in the left axilla in the left breast were prepped and draped in a sterile fashion. The axilla was approached initially. Wide excision was performed. The lesion was approximately 6 mm. The skin was closed using nylon suture. Following this the area of the breast was approached. Incision was made and carried down to the hook of the needle. Surrounding tissue was excised. This specimen was painted for orientation. The cavity was examined for hemostasis. Titanium clips were placed. The deep tissues were closed using 3-0 Vicryl suture. The subcutaneous tissue was closed using 3-0 Vicryl suture followed by a 4-0 Monocryl. The radiograph of the specimen did not reveal the clip however an ultrasound is being done of the specimen.
--- NOTE | 2022-06-17 13:55 | P.DS ---
Providers Attending physician: Enid Benitez Primary care physician: Aston Suggs MD Plan - Discharge Summary Discharge Rx Participant: No New Discharge Prescriptions: No Action predniSONE 1 tab PO DIRECTED Amitriptyline HCl 50 mg PO HS Prazosin [Minipress] 1 mg PO HS Discharge Medication List Amitriptyline HCl 50 mg PO HS 06/12/22 [History] Prazosin [Minipress] 1 mg PO HS 06/12/22 [History] predniSONE 1 tab PO DIRECTED 06/12/22 [History] Follow up Appointment(s)/Referral(s): Enid Benitez MD [STAFF PHYSICIAN] - 06/26/22 11:40 am Activity/Diet/Wound Care/Special Instructions: do not drive for 24 hours after discharge, or if taking narcotic pain medicine may shower after 48 hours wear bra at all times Discharge Disposition: HOME SELF-CARE
[2022-06-17] MEDS: HYDROmorphone 0.5 MG/0.5 ML SYRINGE IVP PRN ×4 (14:00→14:45)
[2022-06-17 14:08] VITALS: RESP 16; TEMP 97
[2022-06-17] MEDS ORDERED: HYDROcodone/APAP 5-325MG 1 EACH TAB ONE (14:57)
[2022-06-17 15:16] VITALS: BP 112/79; PULSE 85
--- NOTE | 2022-06-18 09:00 | USB ---
EXAM: US breast localization LT DATE OF EXAM: 06/17/2022 COMPARISON: 05/01/2022 Bilateral MG 3D screening mammo w/cad, [facility]. 05/08/2022 Left MG 3D work up w/cad LT, [facility]. 05/27/2022 Left MG diagnostic mammo LT wo CAD., [facility]. DESCRIPTION: The needle localization procedure with wire placement for surgical excision was explained to the romy ent. Benefits, alternatives, and risks were discussed. An informed consent was then obtained. A ti meout was performed. The overlying skin was prepped in usual sterile fashion. Lidocaine was used as anesthetic into the s kin and subcutaneous tissue up to the level of area of concern. A 5 cm needle was used. It was plac ed using a approach under ultrasound guidance. This was visualized only through the lesion adjacent to a hydromark. The wire was placed and the needle was withdrawn. The wire was fixed to patient's sk in. Images were reviewed with physician prior to surgery. The patient tolerated the procedure well without any immediate complication. The patient was kept in the radiology department for short stay after the procedure and then taken to surgery for surgical e xcision. Specimen: Wire is identified in specimen mammogram. Hydromark is not identified on mammogram or ultra sound specimens. Specimen and real-time observation of scanning was performed. Specimen findings were discussed with surgeon in person at the time of imaging. Impression: 1. Successful needle localization with wire placement and surgical excision.
--- NOTE | 2022-06-18 09:09 | USB ---
Risk Values: Loreto 5 year model risk: 1.2%. NCI Lifetime model risk: 10.4%. Electronically signed and approved by: Barrington Gandhi D.O. Radiologis
--- NOTE | 2022-06-27 10:24 | MM ---
Reason for Exam: Post Procedure Mammogram. Last screening mammogram was performed 2 month(s) ago. Patient History: Menarche at age 13. First Full-Term at age 22. Hysterectomy at age 45. Postmenopausal. Hormonal Contraceptives for 4 years from age 15 until age 19. 05/27/2022, US biopsy breast VAD LT on the Left side. Maternal grandmother had breast cancer, age 60. Risk Values: Loreto 5 year model risk: 1.2%. NCI Lifetime model risk: 10.4%. Prior Study Comparison: 02/07/2010 Screening Mammogram, [place]. 05/01/2022 Bilateral MG 3D screening mammo w/cad, [facility]. 05/08/2022 Left US breast workup limited LT, [facility]. 05/08/2022 Left MG 3D work up w/cad LT, [facility]. 05/27/2022 Left MG diagnostic mammo LT wo CAD., [facility]. Tissue Density: Left: The breast tissue is heterogeneously dense. This may lower the sensitivity of mammography. Pathology Description: Location: 4 o'clock, lower outer quadrant, middle. The needle localization procedure with wire placement for surgical excision was explained to the patient. Benefits, alternatives, and risks were discussed. An informed consent was then obtained. A timeout was performed. The overlying skin was prepped in usual sterile fashion. Lidocaine was used as anesthetic into the skin and subcutaneous tissue up to the level of area of concern. A 5 cm needle was used. It was placed using a approach under ultrasound guidance. This was visualized only through the lesion adjacent to a hydromark. The wire was placed and the needle was withdrawn. The wire was fixed to patient's skin. Images were reviewed with physician prior to surgery. The patient tolerated the procedure well without any immediate complication. The patient was kept in the radiology department for short stay after the procedure and then taken to surgery for surgical excision. Specimen: Wire is identified in specimen mammogram. Hydromark is not identified on mammogram or ultrasound specimens. Specimen and real-time observation of scanning was performed. Specimen findings were discussed with surgeon in person at the time of imaging. Impression: 1. Successful needle localization with wire placement and surgical excision. Pathology Results: Result: Benign, Fibroadenomatoid hyperplasia. A. LEFT BREAST NEEDLE LOCALIZATION EXCISION: Benign breast with hylanized/sclerotic fibroadenomatoid hyperplasia in a background of fibrocystic changes including sclerosing adenosis and calcifications. Previous biopsy site and a small epidermal inclusion cyst. See note. B. LEFT AXILLA, EXCISION: Compound nevus. Notes : Smooth muscle myosin heavy chain (SMMHC) immunoperoxidase stain performed on block A2, p63 immunoperoxidase stain performed on block A3 and Calponin immunoperoxidase stain performed on block A4 each highlight a myoepithelial cell layer surrounding glandular and tubular structures within a background hyalinized stroma. The results support the diagnosis of the specimen as benign. All immunostains were evaluated with appropriate positive controls. Overall Assessment: Benign Assessment: MG diagnostic mammo LT wo CAD. - Left: Probably benign, BI-RAD 3. Management: Diagnostic Mammogram of the left breast in 6 months. We note that there was clip migration post biopsy. The excision specimen does not contain the clip. We feel results concordant given biopsy site changes seen in specimen and wire passing through lesion on ultrasound guided placement of needle. Electronically signed and approved by: Barrington Gandhi D.O. Radiologis
== END 2022-06-17 16:00 | disposition home or self-care (01) ==
LOC: OR 09:46
PROVIDERS: ATTEND Surgery
DX: D24.2 Benign neoplasm of left breast (principal); N60.22 Fibroadenosis of left breast; N60.12 Diffuse cystic mastopathy of left breast; D22.5 Melanocytic nevi of trunk; J45.909 Unspecified asthma, uncomplicated; M79.7 Fibromyalgia; K21.9 Gastro-esophageal reflux disease without esophagitis; Z88.2 Allergy status to sulfonamides
CPT/HCPCS: 88305; 88342; 88307; 88341; 77065; 76098; 76999; 19285; C1819; J2250; J1100; J2405; J3010; J2370; J2704; J1170; J1644; J2001

== ENCOUNTER → 2022-06-26 | Outpatient (CLI) | payer BC ==
--- NOTE | 2022-06-26 11:49 | P.PN ---
Progress Note - Text Progress Note Date: 06/26/22 Seen as a 46-year-old white female status post left breast needle local lumpectomy and left axillary nevus removal on 5922. Pathology in the breast revealed benign breast with hyalinized sclerotic fiber adenomatoid hyperplasia in the background of fibrocystic changes. The previous biopsy site and a small epidermal inclusion cyst were identified. The clip was not noted in the surgical specimen radiograph. It is believed however that the area of concern was appropriately sampled. She also had a left axillary nevus excised which was a compound nevus. Examination: Incision clean and dry axilla as well as lower left breast Impression: Patient doing well postoperative pathology felt to be benign and concordant The clip was not removed however we will follow this area on further radiographs Plan: Remove sutures Repeat left breast mammogram in 6 months with physician exam at that time CC: Dr. Suggs
== END ==
LOC: WWCWWP 11:27
PROVIDERS: ATTEND Surgery
DX: Z85.3 Personal history of malignant neoplasm of breast (principal); Z88.2 Allergy status to sulfonamides

== ENCOUNTER → 2022-08-21 | Outpatient (CLI) | payer BC ==
--- NOTE | 2022-08-21 21:17 | MR ---
EXAMINATION TYPE: MR lumbar spine wo con DATE OF EXAM: 08/21/2022 COMPARISON: None HISTORY: Low back pain CONTRAST: 0 mL intravenous Gadavist. TECHNIQUE: Multiplanar, multisequence images of the lumbar spine were acquired. FINDINGS: Cord terminates at the L1 level. L5-S1: No significant disc bulge or disc herniation. No spinal canal stenosis. No foraminal stenosi s. 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 Some disc desiccation of L5-S1 is present L4-L5: No significant disc bulge or disc herniation. No spinal canal stenosis. No foraminal stenosi s. L3-L4: No significant disc bulge or disc herniation. No spinal canal stenosis. No foraminal stenosi s. L2-L3: No significant disc bulge or disc herniation. No spinal canal stenosis. No foraminal stenosi s. L1-L2: No significant disc bulge or disc herniation. No spinal canal stenosis. No foraminal stenosi s. T12-L1: No significant disc bulge or disc herniation. No spinal canal stenosis. No foraminal stenos is. IMPRESSION: 1. 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 2. No disc bulging or disc herniations.
== END | disposition home or self-care (01) ==
LOC: RADMRIMAIN 15:33
PROVIDERS: ATTEND Family Medicine
DX: M43.06 Spondylolysis, lumbar region (principal); M46.06 Spinal enthesopathy, lumbar region; M54.41 Lumbago with sciatica, right side
CPT/HCPCS: 72148

== ENCOUNTER → 2022-11-28 | Outpatient (CLI) | payer BC ==
--- NOTE | 2022-11-28 13:23 | MM ---
Reason for Exam: Follow-up at short interval from prior study. Last screening mammogram was performed 7 month(s) ago. Patient History: Menarche at age 13. First Full-Term at age 22. Hysterectomy at age 45. Postmenopausal. Previous Hyperplasia w/o Atypia at age 46. Hormonal Contraceptives for 4 years from age 15 until age 19. 06/17/2022, Benign US breast localization LT on the left side. 05/27/2022, US biopsy breast VAD LT on the Left side. Maternal grandmother had breast cancer, age 60. Risk Values: Loreto 5 year model risk: 1.8%. NCI Lifetime model risk: 13.1%. Prior Study Comparison: 05/08/2022 Left MG 3D work up w/cad LT, [facility]. 05/27/2022 Left MG diagnostic mammo LT wo CAD., [facility]. 06/17/2022 Left MG diagnostic mammo LT wo CAD., [facility]. Tissue Density: Left: The breast tissue is heterogeneously dense. This may lower the sensitivity of mammography. Findings: Analyzed By CAD. No evidence for mass or distortion. No suspicious calcifications. Surgical clips are in place. Overall Assessment: Benign, BI-RAD 2 Management: Screening Mammogram of both breasts in 1 year. . Results were given to the patient verbally at the time of exam. Patient should continue monthly self-breast exams. A clinical breast exam by your physician is recommended on an annual basis. This exam should not preclude additional follow-up of suspicious palpable abnormalities. Note on Loreto scores and lifetime risk: 1. A Loreto score greater than 3% is considered moderate risk. If this is the case, consider specialist referral to assess eligibility for a risk reducing agent. 2. If overall lifetime risk for the development of breast cancer is 20% or higher, the patient may qualify for future screening with alternating mammogram and breast MRI. Electronically signed and approved by: Trung West M.D. Radiologis
== END | disposition home or self-care (01) ==
LOC: RADMAMWWP 12:55
PROVIDERS: ATTEND Surgery
DX: R92.332 Mammographic heterogeneous density, left breast (principal); Z78.0 Asymptomatic menopausal state; Z80.3 Family history of malignant neoplasm of breast
CPT/HCPCS: 77061; 77065

== ENCOUNTER → 2023-12-03 | Outpatient (CLI) | payer BC ==
--- NOTE | 2023-12-07 17:49 | MM ---
Reason for Exam: Screening (asymptomatic). Last mammogram was performed 1 year(s) and 7 month(s) ago. Patient History: Menarche at age 13. First Full-Term at age 22. Hysterectomy at age 45. Postmenopausal. Previous Hyperplasia w/o Atypia at age 46. Hormonal Contraceptives for 4 years from age 15 until age 19. 06/17/2022, Benign US breast localization LT on the left side. 05/27/2022, US biopsy breast VAD LT on the Left side. Maternal grandmother had breast cancer, age 60. Risk Values: Loreto 5 year model risk: 1.7%. NCI Lifetime model risk: 12.8%. Prior Study Comparison: 05/27/2022 Left MG diagnostic mammo LT wo CAD., [facility]. 06/17/2022 Left MG diagnostic mammo LT wo CAD., [facility]. 11/28/2022 Left MG 3D diag mammo w/cad LT, [facility]. Tissue Density: The breasts are heterogeneously dense, which may obscure small masses. Findings: Analyzed By CAD. Postexcisional changes on the left. Areas of asymmetric density are otherwise unchanged. There is no suspicious group of microcalcifications or new suspicious mass in either breast. Overall Assessment: Benign, BI-RAD 2 Management: Screening Mammogram of both breasts in 1 year. Further clinical management of patient's intermittent left breast pain. Patient should continue monthly self-breast exams. A clinical breast exam by your physician is recommended on an annual basis. This exam should not preclude additional follow-up of suspicious palpable abnormalities. Note on Loreto scores and lifetime risk: 1. A Loreto score greater than 3% is considered moderate risk. If this is the case, consider specialist referral to assess eligibility for a risk reducing agent. 2. If overall lifetime risk for the development of breast cancer is 20% or higher, the patient may qualify for future screening with alternating mammogram and breast MRI. [facility], , 12/07/2023 5:45 PM. Electronically signed and approved by: Leonardo Ramires M.D. Radiologist
== END | disposition home or self-care (01) ==
LOC: RADMAMWWP 08:48
PROVIDERS: ATTEND Family Medicine
CPT/HCPCS: 77063; 77067

== ENCOUNTER 2024-01-21 09:49 | Day surgery (SDC) | payer BC ==
[2024-01-20 08:55] VITALS: BMI 34.4
[2024-01-21] MEDS: IV FLUID CONTINUATION 1,000 ML IV ONE ×2 (10:30→11:20)
[2024-01-21 10:31] VITALS: TEMP 97.4
[2024-01-21] MEDS: LACTATED RINGERS 1,000 ML IV SCH (10:38)
[2024-01-21] MEDS ORDERED: PROPOFOL 10 MG/ML 20 ML VIAL IV ONE (11:21)
[2024-01-21] MEDS ORDERED: LIDOCAINE 1% INJ 10MG/ML (20 ML MDV) ONE (11:21)
--- NOTE | 2024-01-21 11:28 | P.GSHP ---
History of Present Illness H&P Date: 01/21/24 Chief Complaint: Screening colonoscopy This a 48-year-old female who presents today for screening colonoscopy. Patient denies any significant GI complaints. Past Medical History Past Medical History: Fibromyalgia, GERD/Reflux Additional Past Medical History / Comment(s): HX OF POLYPS, BLOOD IN STOOL, ABD PAIN, BACK PAIN/INJURY, liver enzlymes elevated History of Any Multi-Drug Resistant Organisms: None Reported Past Surgical History: Back Surgery, Section, Cholecystectomy, Hysterectomy Additional Past Surgical History / Comment(s): LEEP, PLANTAR FASCIITIS LEFT FOOT, spinal surgery c3-7 removed with spacers, colonoscopy Additional Past Anesthesia/Blood Transfusion Reaction / Comment(s): STATES COMES OUT OF ANESTHESIA IN "A PANIC ATTACK", no blood transfusions Smoking Status: Former smoker - Past Family History Mother Family Medical History: No Reported History Medications and Allergies Home Medications Medication Instructions Recorded Confirmed Type Amitriptyline HCl 50 mg PO HS 06/12/22 01/21/24 History Prazosin [Minipress] 1 mg PO HS 06/12/22 01/21/24 History Baclofen [Lioresal] 20 mg PO BID 01/20/24 01/21/24 History Gabapentin [Neurontin] 100 mg PO TID 01/20/24 01/21/24 History Naproxen [EC-Naprosyn] 500 mg PO DAILY 01/20/24 01/21/24 History hydroCHLOROthiazide 1 tab PO HS 01/20/24 01/21/24 History Allergies Allergy/AdvReac Type Severity Reaction Status Date / Time sulfamethoxazole Allergy Rash/Hives Verified 01/21/24 10:27 [From Bactrim] trimethoprim [From Bactrim] Allergy Rash/Hives Verified 01/21/24 10:27 Surgical - Exam Vital Signs Temp Pulse Resp BP Pulse Ox 97.4 F L 104 H 14 124/84 100 01/21/24 10:30 01/21/24 10:30 01/21/24 10:30 01/21/24 10:30 01/21/24 10:30 - General well developed, well nourished, no distress - Eyes PERRL, normal ocular movement - ENT normal pinna - Neck no masses - Respiratory normal expansion - Cardiovascular Rhythm: regular - Abdomen Abdomen: soft, non tender Assessment and Plan Assessment: Will perform screening colonoscopy
--- NOTE | 2024-01-21 11:50 | P.OP ---
Date of Procedure: 01/21/24 Preoperative Diagnosis: Screening colonoscopy Postoperative Diagnosis: Normal colonoscopy Procedure(s) Performed: Colonoscopy Anesthesia: MAC Surgeon: Jhonny Mcnamara Pathology: none sent Condition: stable Disposition: PACU Description of Procedure: Patient was placed on the endoscopy table in the lateral position. She received IV sedation. Digital rectal exam was performed. This revealed no abnormality. Flex colonoscope was then placed patient anus passed throughout the entire colon. The ileocecal valve was visualized. The cecum, ascending and transverse colon appeared normal. The descending and sigmoid colon appeared normal. The rectum was normal. Scope withdrawn for the patient.
[2024-01-21 11:57] VITALS: RESP 16
[2024-01-21 12:09] VITALS: BP 127/78; PULSE 73
== END 2024-01-21 12:36 | disposition home or self-care (01) ==
LOC: ORWHC2ENDO 09:49
PROVIDERS: ATTEND Surgery
DX: Z12.11 Encounter for screening for malignant neoplasm of colon (principal); Z86.0100 Personal history of colon polyps, unspecified; I10 Essential (primary) hypertension; J45.909 Unspecified asthma, uncomplicated; K21.9 Gastro-esophageal reflux disease without esophagitis; M79.7 Fibromyalgia; Z87.891 Personal history of nicotine dependence; Z79.899 Other long term (current) drug therapy; Z98.890 Other specified postprocedural states; Z90.710 Acquired absence of both cervix and uterus; Z90.49 Acquired absence of other specified parts of digestive tract; Z88.1 Allergy status to other antibiotic agents
CPT/HCPCS: 45378; J2003; J2704